=== PATIENT | male | born 1965 | race African-American/Black ===

== ENCOUNTER 2018-05-18 21:42 | Inpatient (IN) | payer OTHER ==
[~2018-05-18] VITALS: Ht 170.2 cm; Wt 107.2 kg
[2018-05-18] MEDS ORDERED: NITROGLYCERIN PREMIX 250 ML IV ONE ×2 (21:57→22:30)
[2018-05-18 23:09] LABS: BASO % 1 % (0-3); EOS # 0.1 x10^3/uL (0.0-0.7); EOS % 1 % (0-3); HEMOGLOBIN 14.9 g/dL (13.0-17.5); LYMPH # 1.3 x10^3/uL (1.0-4.8); LYMPH % 17 % (24-48); MEAN CORPUSCULAR HEMOGLOBIN 27 pg (25-35); MEAN CORPUSCULAR HGB CONC 34 g/dL (31-37); MEAN CORPUSCULAR VOLUME 79 fL (79-100); MONO # 0.3 x10^3/uL (0.0-1.1); MONO % 5 % (0-9); NEUT # 5.6 x10^3uL (1.8-7.7); NEUT % 76 % (31-73); PLATELET COUNT 184 x10^3/uL (140-400); RED BLOOD COUNT 5.55 x10^6/uL (4.30-5.70); RED CELL DISTRIBUTION WIDTH 14.9 % (11.5-14.5); WHITE BLOOD COUNT 7.4 x10^3/uL (4.0-11.0)
[2018-05-18] MEDS ORDERED: LOSA1TAB25 PO (23:16)
[2018-05-18] MEDS ORDERED: CLON0.3T PO (23:16)
[2018-05-18] MEDS ORDERED: METO-239 PO (23:16)
[2018-05-18 23:18] LABS: PROTHROMBIN TIME PATIENT 13.2 SEC (11.7-14.0)
[2018-05-18 23:25] LABS: CALCIUM 8.4 mg/dL (8.5-10.1); CREATININE 1.7 mg/dL (0.7-1.3); GFR 51.7; POTASSIUM 3.1 mmol/L (3.5-5.1)
[2018-05-18 23:30] LABS: ALBUMIN 3.2 g/dL (3.4-5.0); ALBUMIN/GLOBULIN RATIO 0.7 (1.0-1.7); TOTAL BILIRUBIN 0.5 mg/dL (0.2-1.0); TOTAL PROTEIN 7.8 g/dL (6.4-8.2)
[2018-05-18 23:36] LABS: BASE EXCESS ABG 1 mmol/L (-3-3); HCO3 ABG 26 mmol/L (21-28); PCO2 ABG 41 mmHg (35-46); PO2 ABG 86 mmHg (75-108); SAT O2 ABG 97 % (92-99)
--- NOTE | 2018-05-18 23:44 | EKG ---
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
[2018-05-18] MEDS ORDERED: ONDANSETRON PF 4 MG/2 ML VIAL. IV ONE (23:45)
[2018-05-19] VITALS (19 sets, daily range): BP systolic 152–185; BP diastolic 84–98
[2018-05-19] MEDS ORDERED: FUROSEMIDE 40 MG/4 ML VIAL. IVP ONE
[2018-05-19] MEDS ORDERED: POTASSIUM CHLORIDE 20 MEQ/15 ML ORAL LIQUID. PO ONE
[2018-05-19] MEDS ORDERED: ASPIRIN CHEWABLE 81 MG TABLET. PO ONE
[2018-05-19 02:24] LABS: AMPHETAMINE/METHAMPHETAMINE NEG (NEG); BARBITURATES NEG (NEG); BENZODIAZEPINES NEG (NEG); CANNABINOIDS NEG (NEG); COCAINE NEG (NEG); METHADONE NEG (NEG); OPIATES NEG (NEG); PHENCYCLIDINE NEG (NEG)
--- NOTE | 2018-05-19 02:38 | PHYS DOC ---
Past Medical History Past Medical History: Hypertension Past Surgical History: No Surgical History Alcohol Use: Rarely Drug Use: None Adult General Chief Complaint Chief Complaint: SHORTNESS OF BREATH HPI HPI Patient is a 53 year old male presenting with shortness of breath brought in by ambulance was hypoxic he was working in his garage he had fairly sudden onset shortness of breath. Hypoxic to the mid 80s no chest pain Review of Systems Review of Systems Limited by acuity Current Medications Current Medications Current Medications Medications (Trade) Dose Ordered Sig/Alyssa Start Time Stop Time Status Last Admin Dose Admin Aspirin (Children'S Aspirin) 324 mg 1X ONCE 05/19/18 00:00 05/19/18 00:01 DC 05/19/18 00:30 324 MG Furosemide (Lasix) 40 mg 1X ONCE 05/19/18 00:00 05/19/18 00:01 DC 05/19/18 00:30 40 MG Nitroglycerin/ Dextrose 250 ml @ 0 mls/hr 1X ONCE 05/18/18 22:30 05/18/18 22:31 DC 05/18/18 21:59 15 MLS/HR Ondansetron HCl (Zofran) 4 mg 1X ONCE 05/18/18 23:45 05/18/18 23:46 DC 05/19/18 00:30 4 MG Potassium Chloride (KCl Oral Soln) 40 meq 1X ONCE 05/19/18 00:00 05/19/18 00:01 DC 05/19/18 00:31 40 MEQ Allergies Allergies Allergies Coded Allergies Type Severity Reaction Last Updated Verified No Known Drug Allergies 05/18/18 No Physical Exam Physical Exam Constitutional: Well developed, well nourished, ill appearing HENT: Normocephalic, atraumatic, bilateral external ears normal, oropharynx moist, no oral exudates, nose normal. [] Eyes: PERRLA, EOMI, conjunctiva normal, no discharge. [] Neck: Normal range of motion, no tenderness, supple, no stridor. [] Cardiovascular: Mild tachycardia no definite murmurs Lungs & Thorax: Coarse bilateral breath sounds crackles noted tachypnea patient is on BiPAP Abdomen: Bowel sounds normal, soft, no tenderness, no masses, no pulsatile masses. [] Skin: Warm, dry, no erythema, no rash. [] Back: No tenderness, no CVA tenderness. [] Extremities: No tenderness, no cyanosis, no clubbing, ROM intact, mild 1+ edema and no asymmetry Neurologic: Alert and oriented X 3, normal motor function, normal sensory function, no focal deficits noted. [] Psychologic: Affect normal, judgement normal, mood normal. [] Current Patient Data Vital Signs Vital Signs Date Time Temp Pulse Resp B/P (MAP) Pulse Ox O2 Delivery O2 Flow Rate FiO2 05/19/18 00:20 61 190/110 (136) 96 BiPAP/CPAP 05/18/18 21:50 97.9 22 15.0 97.9 Lab Values Laboratory Tests Test 05/18/18 22:31 05/18/18 23:02 O2 Saturation 97 % (92-99) Arterial Blood pH 7.41 (7.35-7.45) Arterial Blood pCO2 at Patient Temp 41 mmHg (35-46) Arterial Blood pO2 at Patient Temp 86 mmHg (75-108) Arterial Blood HCO3 26 mmol/L (21-28) Arterial Blood Base Excess 1 mmol/L (-3-3) FiO2 70.0 White Blood Count 7.4 x10^3/uL (4.0-11.0) Red Blood Count 5.55 x10^6/uL (4.30-5.70) Hemoglobin 14.9 g/dL (13.0-17.5) Hematocrit 44.0 % (39.0-53.0) Mean Corpuscular Volume 79 fL (79-100) Mean Corpuscular Hemoglobin 27 pg (25-35) Mean Corpuscular Hemoglobin Concent 34 g/dL (31-37) Red Cell Distribution Width 14.9 % (11.5-14.5) H Platelet Count 184 x10^3/uL (140-400) Neutrophils (%) (Auto) 76 % (31-73) H Lymphocytes (%) (Auto) 17 % (24-48) L Monocytes (%) (Auto) 5 % (0-9) Eosinophils (%) (Auto) 1 % (0-3) Basophils (%) (Auto) 1 % (0-3) Neutrophils # (Auto) 5.6 x10^3uL (1.8-7.7) Lymphocytes # (Auto) 1.3 x10^3/uL (1.0-4.8) Monocytes # (Auto) 0.3 x10^3/uL (0.0-1.1) Eosinophils # (Auto) 0.1 x10^3/uL (0.0-0.7) Basophils # (Auto) 0.0 x10^3/uL (0.0-0.2) Prothrombin Time 13.2 SEC (11.7-14.0) Prothrombin Time INR 1.1 (0.8-1.1) Sodium Level 141 mmol/L (136-145) Potassium Level 3.1 mmol/L (3.5-5.1) L Chloride Level 104 mmol/L (98-107) Carbon Dioxide Level 30 mmol/L (21-32) Anion Gap 7 (6-14) Blood Urea Nitrogen 24 mg/dL (8-26) Creatinine 1.7 mg/dL (0.7-1.3) H Estimated GFR (Cockcroft-Gault) 51.7 BUN/Creatinine Ratio 14 (6-20) Glucose Level 119 mg/dL (70-99) H Calcium Level 8.4 mg/dL (8.5-10.1) L Total Bilirubin 0.5 mg/dL (0.2-1.0) Aspartate Amino Transferase (AST) 27 U/L (15-37) Alanine Aminotransferase (ALT) 36 U/L (16-63) Alkaline Phosphatase 83 U/L (46-116) Troponin I Quantitative 0.293 ng/mL (0.000-0.055) KD-Btk-N-Type Natriuretic Peptide 1902 pg/mL (0-124) H Total Protein 7.8 g/dL (6.4-8.2) Albumin 3.2 g/dL (3.4-5.0) L Albumin/Globulin Ratio 0.7 (1.0-1.7) L Ethyl Alcohol Level < 10 mg/dL (0-10) Laboratory Tests 05/18/18 23:02 Laboratory Tests 05/18/18 23:02 EKG EKG []EKG shows a normal sinus rhythm with LVH pattern probably no definite ischemia however no old EKG for comparison repeat EKG in the emergency room little bit LATER essentially unchanged no STEMI was seen Radiology/Procedures Radiology/Procedures [] Impressions: PULM EDEMA Course & Med Decision Making Course & Med Decision Making Pertinent Labs and Imaging studies reviewed. (See chart for details) 53-year-old male with hypertension presenting with acute pulmonary edema initial blood pressure in the 230s Patient was placed on BiPAP as well as a nitro drip with significant improvement in his symptoms blood pressure down to the 170s on this reevaluation. I suspect hypertensive emergency with pulmonary edema this would explain the mild elevation of troponin and BNP. Lasix was given patient was admitted to the service of Dr. GONZALEZ DURING ER VISIT. Critical care time was 35 minutes exclusive of procedures. Dragon Disclaimer Dragon Disclaimer This electronic medical record was generated, in whole or in part, using a voice recognition dictation system. Departure Departure Impression: Primary Impression: Acute pulmonary edema Disposition: ADMITTED INPATIENT Condition: GUARDED Referrals: MODE CRUZ (PCP) WALTER DAUGHERTY MD May 19, 2018 02:38
[2018-05-19] MEDS ORDERED: cloNIDine HCL 0.3 MG TABLET PO ONE (03:30)
--- NOTE | 2018-05-19 06:15 | EKG ---
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
[2018-05-19 08:04] LABS: CALCIUM 8.1 mg/dL (8.5-10.1); CREATININE 1.7 mg/dL (0.7-1.3); GFR 51.7; MAGNESIUM 1.8 mg/dL (1.8-2.4); POTASSIUM 3.6 mmol/L (3.5-5.1)
[2018-05-19 08:06] LABS: CHOLESTEROL/HDL RATIO 3.2
--- NOTE | 2018-05-19 08:51 | PDOC2 ---
CARDIAC CONSULT DATE OF CONSULT Date of Consult DATE: 05/19/18 TIME: 08:43 REASON FOR CONSULT Reason for Consult: pulmonary edema REFERRING PHYSICIAN Referring Physician: Silvana SOURCE Source: Chart review, Patient HISTORY OF PRESENT ILLNESS HISTORY OF PRESENT ILLNESS 53 year old male with a history of HTN who developed acute onset of dyspnea about 2100 yesterday. Presented to ER with O2 sats in the 80s and SBP > 200. Denies missed med dosages. Denies associated chest pain, pressure, palpitations, dizziness, nausea or lower extremity edema. Troponin peaked @ 0.29 with NT-proBNP of 1900 and Cr of 1.7. EKG without acute changes. Now with headache on NTG gtt. SBP in the 160s. Reason for Visit: pulm edema PAST MEDICAL HISTORY Cardiovascular: HTN Pulmonary: Asthma CENTRAL NERVOUS SYSTEM: Other (none) GI: No pertinent hx Heme/Onc: No pertinent hx Hepatobiliary: No pertinent hx Psych: No pertinent hx Musculoskeletal: No pain Rheumatologic: No pertinent hx Infectious disease: No pertinent hx ENT: No pertinent hx Renal/: No pertinent hx Endocrine: No pertinent hx Dermatology: No pertinent hx PAST SURGICAL HISTORY Past Surgical History: No pertinent history FAMILY HISTORY Family History: Heart Disease, Hypertension SOCIAL HISTORY Smoke: No ALCOHOL: none Drugs: None Lives: with Family CURRENT MEDICATIONS CURRENT MEDICATIONS Current Medications Medications (Trade) Dose Ordered Sig/Alyssa Route PRN Reason Start Time Stop Time Status Last Admin Dose Admin Nitroglycerin/ Dextrose 250 ml @ 0 mls/hr 1X ONCE IV 05/18/18 22:30 05/18/18 22:31 DC 05/18/18 21:59 Ondansetron HCl (Zofran) 4 mg 1X ONCE IV 05/18/18 23:45 05/18/18 23:46 DC 05/19/18 00:30 Aspirin (Children'S Aspirin) 324 mg 1X ONCE PO 05/19/18 00:00 05/19/18 00:01 DC 05/19/18 00:30 Potassium Chloride (KCl Oral Soln) 40 meq 1X ONCE PO 05/19/18 00:00 05/19/18 00:01 DC 05/19/18 00:31 Furosemide (Lasix) 40 mg 1X ONCE IVP 05/19/18 00:00 05/19/18 00:01 DC 05/19/18 00:30 Clonidine HCl (Catapres) 0.3 mg 1X ONCE PO 05/19/18 03:30 05/19/18 03:31 DC 05/19/18 03:21 ALLERGIES ALLERGIES: Coded Allergies: No Known Drug Allergies (Unverified , 05/18/18) ROS Review of System 10 point review with pertinent positives in HPI PHYSICAL EXAM General: Alert, Oriented X3, Cooperative, No acute distress HEENT: Atraumatic Lungs: Clear to auscultation, Normal air movement Heart: Normal S1, Normal S2 Abdomen: Normal bowel sounds, Soft Extremities: No edema Skin: No rashes, No breakdown Neuro: Normal speech Psych/Mental Status: Mental status NL, Mood NL MUSCULOSKELETAL: No deformity VITALS VITALS Vital Signs Date Time Temp Pulse Resp B/P (MAP) Pulse Ox O2 Delivery O2 Flow Rate FiO2 05/19/18 06:00 56 16 156/95 (115) 99 Nasal Cannula 4.0 05/19/18 02:30 98.2 98.2 LABS Lab: Laboratory Tests Test 05/18/18 22:31 05/18/18 23:02 05/19/18 02:07 05/19/18 03:00 O2 Saturation 97 % (92-99) Arterial Blood pH 7.41 (7.35-7.45) Arterial Blood pCO2 at Patient Temp 41 mmHg (35-46) Arterial Blood pO2 at Patient Temp 86 mmHg (75-108) Arterial Blood HCO3 26 mmol/L (21-28) Arterial Blood Base Excess 1 mmol/L (-3-3) FiO2 70.0 White Blood Count 7.4 x10^3/uL (4.0-11.0) Red Blood Count 5.55 x10^6/uL (4.30-5.70) Hemoglobin 14.9 g/dL (13.0-17.5) Hematocrit 44.0 % (39.0-53.0) Mean Corpuscular Volume 79 fL (79-100) Mean Corpuscular Hemoglobin 27 pg (25-35) Mean Corpuscular Hemoglobin Concent 34 g/dL (31-37) Red Cell Distribution Width 14.9 % (11.5-14.5) Platelet Count 184 x10^3/uL (140-400) Neutrophils (%) (Auto) 76 % (31-73) Lymphocytes (%) (Auto) 17 % (24-48) Monocytes (%) (Auto) 5 % (0-9) Eosinophils (%) (Auto) 1 % (0-3) Basophils (%) (Auto) 1 % (0-3) Neutrophils # (Auto) 5.6 x10^3uL (1.8-7.7) Lymphocytes # (Auto) 1.3 x10^3/uL (1.0-4.8) Monocytes # (Auto) 0.3 x10^3/uL (0.0-1.1) Eosinophils # (Auto) 0.1 x10^3/uL (0.0-0.7) Basophils # (Auto) 0.0 x10^3/uL (0.0-0.2) Prothrombin Time 13.2 SEC (11.7-14.0) Prothromb Time International Ratio 1.1 (0.8-1.1) Sodium Level 141 mmol/L (136-145) Potassium Level 3.1 mmol/L (3.5-5.1) Chloride Level 104 mmol/L (98-107) Carbon Dioxide Level 30 mmol/L (21-32) Anion Gap 7 (6-14) Blood Urea Nitrogen 24 mg/dL (8-26) Creatinine 1.7 mg/dL (0.7-1.3) Estimated GFR (Cockcroft-Gault) 51.7 BUN/Creatinine Ratio 14 (6-20) Glucose Level 119 mg/dL (70-99) Calcium Level 8.4 mg/dL (8.5-10.1) Total Bilirubin 0.5 mg/dL (0.2-1.0) Aspartate Amino Transf (AST/SGOT) 27 U/L (15-37) Alanine Aminotransferase (ALT/SGPT) 36 U/L (16-63) Alkaline Phosphatase 83 U/L (46-116) Troponin I Quantitative 0.293 ng/mL (0.000-0.055) 0.268 ng/mL (0.000-0.055) QG-Fve-I-Type Natriuretic Peptide 1902 pg/mL (0-124) Total Protein 7.8 g/dL (6.4-8.2) Albumin 3.2 g/dL (3.4-5.0) Albumin/Globulin Ratio 0.7 (1.0-1.7) Ethyl Alcohol Level < 10 mg/dL (0-10) Urine Opiates Screen Neg (NEG) Urine Methadone Screen Neg (NEG) Urine Barbiturates Neg (NEG) Urine Phencyclidine Screen Neg (NEG) Urine Amphetamine/Methamphetamine Neg (NEG) Urine Benzodiazepines Screen Neg (NEG) Urine Cocaine Screen Neg (NEG) Urine Cannabinoids Screen Neg (NEG) Urine Ethyl Alcohol Neg (NEG) Thyroid Stimulating Hormone (TSH) 1.151 uIU/mL (0.358-3.74) Test 05/19/18 06:00 Sodium Level 141 mmol/L (136-145) Potassium Level 3.6 mmol/L (3.5-5.1) Chloride Level 105 mmol/L (98-107) Carbon Dioxide Level 29 mmol/L (21-32) Anion Gap 7 (6-14) Blood Urea Nitrogen 25 mg/dL (8-26) Creatinine 1.7 mg/dL (0.7-1.3) Estimated GFR (Cockcroft-Gault) 51.7 Glucose Level 131 mg/dL (70-99) Calcium Level 8.1 mg/dL (8.5-10.1) Magnesium Level 1.8 mg/dL (1.8-2.4) Troponin I Quantitative 0.241 ng/mL (0.000-0.055) Triglycerides Level 25 mg/dL (0-150) Cholesterol Level 146 mg/dL (0-200) LDL Cholesterol, Calculated 95 mg/dL (0-100) VLDL Cholesterol, Calculated 5 mg/dL (0-40) Non-HDL Cholesterol Calculated 100 mg/dL (0-129) HDL Cholesterol 46 mg/dL (40-60) Cholesterol/HDL Ratio 3.2 IMAGES IMAGES CXR - no report and film can not be opened EKG EKG no acute changes ECHOCARDIOGRAM ECHOCARDIOGRAM pending ASSESSMENT/PLAN ASSESSMENT/PLAN 1. pulmonary edema secondary to hypertensive urgency --treated with furosemide in ER with symptom improvement --resume home meds which include diuretic --d/c NTG gtt and treat headache with Tylenol 2. NSTEMI secondary to hypertensive urgency --trop peaked @ 0.29; likely demand mediated --echo to evaluate LVEF and assess for WMA --consider MPI as outpatient with risk factors of HTN & family history 3. lipids controlled agreeable with transfer to [facility] ONEIDA COOL APRN May 19, 2018 08:51
--- NOTE | 2018-05-19 08:54 | RAD ---
Chest radiograph 05/18/2018 10:07 PM INDICATION: Dyspnea COMPARISON: None available TECHNIQUE: Portable upright frontal view of the chest is provided. FINDINGS: The cardiomediastinal silhouette is within normal limits. There is moderate pulmonary vascular congestion. There is confluent alveolar airspace disease in right lower lobe. This may represent asymmetric alveolar edema versus pulmonary infiltrate. No pneumothorax. If no pleural effusions. No significant osseous abnormality is identified. IMPRESSION: Moderate pulmonary vascular congestion with more confluent opacity in the right lower lobe suggestive of asymmetric pulmonary edema versus pulmonary infiltrate. Electronically signed by: Kathleen Caputo MD (05/19/2018 8:51 AM) [id number]
[2018-05-19] MEDS ORDERED: NON FORMULARY ITEM (Losartan/Hydrochlorothiazide (Losartan-Hctz 100-12.5 Mg Tab) 1 EACH) PO SCH (09:00)
[2018-05-19] MEDS: hydroCHLOROthiazide 12.5 MG CAPSULE PO SCH (09:26)
[2018-05-19] MEDS: ACETAMINOPHEN 500 MG TABLET PO PRN (09:26)
[2018-05-19] MEDS: LOSARTAN POTASSIUM 50 MG TABLET. PO SCH (09:27)
[2018-05-19] MEDS: cloNIDine HCL 0.3 MG TABLET PO SCH ×3 (09:29→19:43)
[2018-05-19] MEDS ORDERED: METOPROLOL SUCC 24HR ER 25 MG TAB.ER.24H. PO SCH (09:30)
--- NOTE | 2018-05-19 10:18 | PDOC ---
Provider Note Provider Note Pt seen in ICU. H&P dictated. #[id number]. NEETU GONZALEZ MD May 19, 2018 10:18
--- NOTE | 2018-05-19 10:29 | CARD ---
MR#: [id number] Date of Study: 05/19/2018 Ordering Physician: MARIA VICTORIA ZAPATA, Referring Physician: NEETU GONZALEZ Tech: Magaly Matamoros SARAH APPROVED REPORT EXAM: Two-dimensional and M-mode echocardiogram with Doppler and color Doppler. Other Information Quality : Good INDICATION Congestive Heart Failure 2D DIMENSIONS RVDd2.8 (2.9-3.5cm)Left Atrium(2D)4.6 (1.6-4.0cm) IVSd1.7 (0.7-1.1cm)Aortic Root(2D)2.9 (2.0-3.7cm) LVDd4.7 (3.9-5.9cm)LVOT Diameter2.4 (1.8-2.4cm) PWd1.3 (0.7-1.1cm)LVDs3.3 (2.5-4.0cm) FS (%) 31.3 %SV61.6 ml LVEF(%)59.1 (>50%) Aortic Valve AoV Peak Van.143.0cm/sAoV VTI28.2cm AO Peak GR.8.2mmHgLVOT VTI 25.02cm AO Mean GR.5mmHgAVA (VTI)3.86cm2 Mitral Valve MV E Pegjvnee62.0cm/sMV DECEL XOAE243tz MV A Jxfettru72.8cm/sE/A Ratio1.1 TDI Lateral E' P. V5.73cm/sMedial E' P. V5.86cm/s E/Lateral E'15.4E/Medial E'15.0 Tricuspid Valve TR P. Iminzomb722mf/sRAP AYOOLZKZ2lqEf TR Peak Gr.69jgTfREQY48xiDl Pulmonary Vein S1 Mefaytgo43.5cm/sS2 Zxxrjluj75.52cm/s D2 Tfipfxdn99.5cm/s LEFT VENTRICLE The left ventricle is normal size. There is mild to moderate concentric left ventricular hypertrophy. The left ventricular systolic function is normal. The Ejection Fraction is 60-65%. There is normal L V segmental wall motion. The left ventricular diastolic function and filling is normal for age. RIGHT VENTRICLE The right ventricle is normal size. The right ventricular systolic function is normal. ATRIA The left atrium is mildly dilated. The right atrium size is normal. The interatrial septum is intact with no evidence for an atrial septal defect or patent foramen ovale as noted on 2-D or Doppler imagi ng. AORTIC VALVE The aortic valve is calcified but opens well. Doppler and Color Flow revealed no significant aortic r egurgitation. There is no significant aortic valvular stenosis. MITRAL VALVE The mitral valve is calcified but opens well. There is no evidence of mitral valve prolapse. There is no mitral valve stenosis. Doppler and Color-flow revealed trace mitral regurgitation. TRICUSPID VALVE The tricuspid valve is normal in structure and function. Doppler and Color Flow revealed trace tricus pid regurgitation. The PA pressure was estimated at 24 mmHg. There is no tricuspid valve stenosis. PULMONIC VALVE The pulmonary valve is normal in structure and function. Doppler and Color Flow revealed trace pulmon ic valvular regurgitation. There is no pulmonic valvular stenosis. GREAT VESSELS The aortic root is normal in size. The ascending aorta is normal in size. The IVC is normal in size a nd collapses >50% with inspiration. PERICARDIAL EFFUSION There is no evidence of significant pericardial effusion. Critical Notification Critical Value: No <Conclusion> The left ventricular systolic function is normal. The Ejection Fraction is 60-65%. There is normal LV segmental wall motion. Trace mitral regurgitation. Trace tricuspid regurgitation. The PA pressure was estimated at 24 mmHg. There is no evidence of significant pericardial effusion. Signed by : Leobardo Palacios, Electronically Approved : 05/19/2018 10:28:52
[2018-05-19] MEDS ORDERED: ASPIRIN 325 MG TABLET PO ONE (10:30)
[2018-05-19] MEDS ORDERED: IPRATRPIUM/ALBUTEROL 0.5/2.5MG 3 ML NEBU. NEB ONE (10:30)
--- NOTE | 2018-05-19 10:51 | EKG ---
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
[2018-05-19] MEDS: IPRATRPIUM/ALBUTEROL 0.5/2.5MG 3 ML NEBU. NEB SCH ×3 (11:06→19:12)
--- NOTE | 2018-05-19 12:01 | RAD ---
AP and Lateral Views of the Chest 05/19/2018 10:40 AM Indication: F/U CHF Comparison: Chest radiograph, yesterday Findings: Central vascular congestion and interstitial edema have improved. Right-sided infiltrate persists, but also appears somewhat improved. No significant pleural effusion is identified. The heart is mildly enlarged. No acute osseous changes are seen. IMPRESSION: 1. Improving vascular congestion and interstitial edema 2. Improvement persistent right basilar infiltrate Electronically signed by: Minor Austin MD (05/19/2018 11:57 AM) [id number]
--- NOTE | 2018-05-19 12:50 | PDOC ---
PULMONARY PROGRESS NOTES Vitals Vital Signs Date Time Temp Pulse Resp B/P (MAP) Pulse Ox O2 Delivery O2 Flow Rate FiO2 05/19/18 11:05 95 Room Air 05/19/18 09:29 64 170/95 05/19/18 08:00 2.0 05/19/18 06:00 16 05/19/18 02:30 98.2 98.2 Labs Laboratory Tests Test 05/18/18 22:31 05/18/18 23:02 05/19/18 02:07 05/19/18 03:00 O2 Saturation 97 % (92-99) Arterial Blood pH 7.41 (7.35-7.45) Arterial Blood pCO2 at Patient Temp 41 mmHg (35-46) Arterial Blood pO2 at Patient Temp 86 mmHg (75-108) Arterial Blood HCO3 26 mmol/L (21-28) Arterial Blood Base Excess 1 mmol/L (-3-3) FiO2 70.0 White Blood Count 7.4 x10^3/uL (4.0-11.0) Red Blood Count 5.55 x10^6/uL (4.30-5.70) Hemoglobin 14.9 g/dL (13.0-17.5) Hematocrit 44.0 % (39.0-53.0) Mean Corpuscular Volume 79 fL (79-100) Mean Corpuscular Hemoglobin 27 pg (25-35) Mean Corpuscular Hemoglobin Concent 34 g/dL (31-37) Red Cell Distribution Width 14.9 % (11.5-14.5) Platelet Count 184 x10^3/uL (140-400) Neutrophils (%) (Auto) 76 % (31-73) Lymphocytes (%) (Auto) 17 % (24-48) Monocytes (%) (Auto) 5 % (0-9) Eosinophils (%) (Auto) 1 % (0-3) Basophils (%) (Auto) 1 % (0-3) Neutrophils # (Auto) 5.6 x10^3uL (1.8-7.7) Lymphocytes # (Auto) 1.3 x10^3/uL (1.0-4.8) Monocytes # (Auto) 0.3 x10^3/uL (0.0-1.1) Eosinophils # (Auto) 0.1 x10^3/uL (0.0-0.7) Basophils # (Auto) 0.0 x10^3/uL (0.0-0.2) Prothrombin Time 13.2 SEC (11.7-14.0) Prothromb Time International Ratio 1.1 (0.8-1.1) Sodium Level 141 mmol/L (136-145) Potassium Level 3.1 mmol/L (3.5-5.1) Chloride Level 104 mmol/L (98-107) Carbon Dioxide Level 30 mmol/L (21-32) Anion Gap 7 (6-14) Blood Urea Nitrogen 24 mg/dL (8-26) Creatinine 1.7 mg/dL (0.7-1.3) Estimated GFR (Cockcroft-Gault) 51.7 BUN/Creatinine Ratio 14 (6-20) Glucose Level 119 mg/dL (70-99) Calcium Level 8.4 mg/dL (8.5-10.1) Total Bilirubin 0.5 mg/dL (0.2-1.0) Aspartate Amino Transf (AST/SGOT) 27 U/L (15-37) Alanine Aminotransferase (ALT/SGPT) 36 U/L (16-63) Alkaline Phosphatase 83 U/L (46-116) Troponin I Quantitative 0.293 ng/mL (0.000-0.055) 0.268 ng/mL (0.000-0.055) WV-Blc-G-Type Natriuretic Peptide 1902 pg/mL (0-124) Total Protein 7.8 g/dL (6.4-8.2) Albumin 3.2 g/dL (3.4-5.0) Albumin/Globulin Ratio 0.7 (1.0-1.7) Ethyl Alcohol Level < 10 mg/dL (0-10) Urine Opiates Screen Neg (NEG) Urine Methadone Screen Neg (NEG) Urine Barbiturates Neg (NEG) Urine Phencyclidine Screen Neg (NEG) Urine Amphetamine/Methamphetamine Neg (NEG) Urine Benzodiazepines Screen Neg (NEG) Urine Cocaine Screen Neg (NEG) Urine Cannabinoids Screen Neg (NEG) Urine Ethyl Alcohol Neg (NEG) Thyroid Stimulating Hormone (TSH) 1.151 uIU/mL (0.358-3.74) Test 05/19/18 06:00 Sodium Level 141 mmol/L (136-145) Potassium Level 3.6 mmol/L (3.5-5.1) Chloride Level 105 mmol/L (98-107) Carbon Dioxide Level 29 mmol/L (21-32) Anion Gap 7 (6-14) Blood Urea Nitrogen 25 mg/dL (8-26) Creatinine 1.7 mg/dL (0.7-1.3) Estimated GFR (Cockcroft-Gault) 51.7 Glucose Level 131 mg/dL (70-99) Calcium Level 8.1 mg/dL (8.5-10.1) Magnesium Level 1.8 mg/dL (1.8-2.4) Troponin I Quantitative 0.241 ng/mL (0.000-0.055) Triglycerides Level 25 mg/dL (0-150) Cholesterol Level 146 mg/dL (0-200) LDL Cholesterol, Calculated 95 mg/dL (0-100) VLDL Cholesterol, Calculated 5 mg/dL (0-40) Non-HDL Cholesterol Calculated 100 mg/dL (0-129) HDL Cholesterol 46 mg/dL (40-60) Cholesterol/HDL Ratio 3.2 Laboratory Tests Test 05/18/18 22:31 05/18/18 23:02 05/19/18 02:07 05/19/18 03:00 O2 Saturation 97 % (92-99) Arterial Blood pH 7.41 (7.35-7.45) Arterial Blood pCO2 at Patient Temp 41 mmHg (35-46) Arterial Blood pO2 at Patient Temp 86 mmHg (75-108) Arterial Blood HCO3 26 mmol/L (21-28) Arterial Blood Base Excess 1 mmol/L (-3-3) FiO2 70.0 White Blood Count 7.4 x10^3/uL (4.0-11.0) Red Blood Count 5.55 x10^6/uL (4.30-5.70) Hemoglobin 14.9 g/dL (13.0-17.5) Hematocrit 44.0 % (39.0-53.0) Mean Corpuscular Volume 79 fL (79-100) Mean Corpuscular Hemoglobin 27 pg (25-35) Mean Corpuscular Hemoglobin Concent 34 g/dL (31-37) Red Cell Distribution Width 14.9 % (11.5-14.5) Platelet Count 184 x10^3/uL (140-400) Neutrophils (%) (Auto) 76 % (31-73) Lymphocytes (%) (Auto) 17 % (24-48) Monocytes (%) (Auto) 5 % (0-9) Eosinophils (%) (Auto) 1 % (0-3) Basophils (%) (Auto) 1 % (0-3) Neutrophils # (Auto) 5.6 x10^3uL (1.8-7.7) Lymphocytes # (Auto) 1.3 x10^3/uL (1.0-4.8) Monocytes # (Auto) 0.3 x10^3/uL (0.0-1.1) Eosinophils # (Auto) 0.1 x10^3/uL (0.0-0.7) Basophils # (Auto) 0.0 x10^3/uL (0.0-0.2) Prothrombin Time 13.2 SEC (11.7-14.0) Prothromb Time International Ratio 1.1 (0.8-1.1) Sodium Level 141 mmol/L (136-145) Potassium Level 3.1 mmol/L (3.5-5.1) Chloride Level 104 mmol/L (98-107) Carbon Dioxide Level 30 mmol/L (21-32) Anion Gap 7 (6-14) Blood Urea Nitrogen 24 mg/dL (8-26) Creatinine 1.7 mg/dL (0.7-1.3) Estimated GFR (Cockcroft-Gault) 51.7 BUN/Creatinine Ratio 14 (6-20) Glucose Level 119 mg/dL (70-99) Calcium Level 8.4 mg/dL (8.5-10.1) Total Bilirubin 0.5 mg/dL (0.2-1.0) Aspartate Amino Transf (AST/SGOT) 27 U/L (15-37) Alanine Aminotransferase (ALT/SGPT) 36 U/L (16-63) Alkaline Phosphatase 83 U/L (46-116) Troponin I Quantitative 0.293 ng/mL (0.000-0.055) 0.268 ng/mL (0.000-0.055) JL-Ego-W-Type Natriuretic Peptide 1902 pg/mL (0-124) Total Protein 7.8 g/dL (6.4-8.2) Albumin 3.2 g/dL (3.4-5.0) Albumin/Globulin Ratio 0.7 (1.0-1.7) Ethyl Alcohol Level < 10 mg/dL (0-10) Urine Opiates Screen Neg (NEG) Urine Methadone Screen Neg (NEG) Urine Barbiturates Neg (NEG) Urine Phencyclidine Screen Neg (NEG) Urine Amphetamine/Methamphetamine Neg (NEG) Urine Benzodiazepines Screen Neg (NEG) Urine Cocaine Screen Neg (NEG) Urine Cannabinoids Screen Neg (NEG) Urine Ethyl Alcohol Neg (NEG) Thyroid Stimulating Hormone (TSH) 1.151 uIU/mL (0.358-3.74) Test 05/19/18 06:00 Sodium Level 141 mmol/L (136-145) Potassium Level 3.6 mmol/L (3.5-5.1) Chloride Level 105 mmol/L (98-107) Carbon Dioxide Level 29 mmol/L (21-32) Anion Gap 7 (6-14) Blood Urea Nitrogen 25 mg/dL (8-26) Creatinine 1.7 mg/dL (0.7-1.3) Estimated GFR (Cockcroft-Gault) 51.7 Glucose Level 131 mg/dL (70-99) Calcium Level 8.1 mg/dL (8.5-10.1) Magnesium Level 1.8 mg/dL (1.8-2.4) Troponin I Quantitative 0.241 ng/mL (0.000-0.055) Triglycerides Level 25 mg/dL (0-150) Cholesterol Level 146 mg/dL (0-200) LDL Cholesterol, Calculated 95 mg/dL (0-100) VLDL Cholesterol, Calculated 5 mg/dL (0-40) Non-HDL Cholesterol Calculated 100 mg/dL (0-129) HDL Cholesterol 46 mg/dL (40-60) Cholesterol/HDL Ratio 3.2 Medications Active Scripts Medications Dose Route/Sig Max Daily Dose Days Date Category Clonidine Hcl 0.3 Mg Tablet 0.3 Mg PO TID 05/18/18 Reported Losartan-Hctz 100-12.5 Mg Tab (Losartan/Hydrochlorothiazide) 1 Each Tablet 1 Each PO DAILY 05/18/18 Reported Metoprolol Succinate ( Xl ) (Metoprolol Succinate) 25 Mg Tab.er.24h 25 Mg PO DAILY 05/18/18 Reported Impression . ACUTE RESP FAILURE SEC TO CHF POSSIBLE PNEUMONIA AGREE WITH CURRENT RX ADD RAGINI ROMAN MD May 19, 2018 12:50
[2018-05-19] MEDS: DOXYCYCLINE HYCLATE 100 MG TABLET PO SCH ×2 (13:34→19:43)
--- NOTE | 2018-05-19 15:15 | RAD ---
Renal ultrasound, 05/19/2018: HISTORY: Renal failure The right kidney measures 10.3 cm in length while the left kidney measures 10.9 cm. There is no evidence of hydronephrosis or a renal mass. The renal parenchymal echogenicity is within normal limits. Limited views of urinary bladder show no abnormality. Bilateral ureteral jets are present. Graft impression: No significant abnormality is detected. IMPRESSION: No significant renal abnormality is detected. Deep Doppler renal ultrasound, 05/19/2018: HISTORY: Renal failure Duplex evaluation of the main renal arteries was performed including grayscale, color-flow and spectral Doppler analysis. The peak systolic velocity in the right main renal artery is 79 cm/s and on the left is 45 cm/s. No high velocity or velocity acceleration is seen in either main renal artery to suggest significant renal artery stenosis. No parvus/tardus phenomena is evident. IMPRESSION: No duplex evidence of significant renal artery stenosis. Electronically signed by: Alli Frazier MD (05/19/2018 3:12 PM) [facility]
[2018-05-19] MEDS: LABETALOL 20 MG/4 ML DISP.SYRIN. IVP PRN (17:37)
--- NOTE | 2018-05-19 18:07 | HP ---
ADMIT DATE: 05/19/2018 LOCATION: 208. REASON FOR ADMISSION TO THE HOSPITAL: Shortness of breath, pulmonary edema. HISTORY OF PRESENT ILLNESS: The patient is a 53-year-old male. The patient says he has history of hypertension and takes medications, sees Dr. Cruz as primary physician. He was cleaning his car yesterday in the garage, and he says he was using that spray to clean the tires and after that he felt hard to breathe. He was having wheezing problems, and then, he called 911 and came to the hospital. His blood pressure was high, and his troponin was peaked to 0.2, creatinine 1.7, was admitted. X-ray shows fluid in the lungs, pulmonary edema, was given Lasix, was given nitroglycerin drip. Cardiology was consulted, was admitted to the hospital. PAST MEDICAL HISTORY: History of hypertension and asthma. Denies any cardiac problems. PAST SURGICAL HISTORY: No surgical history. FAMILY HISTORY: Positive for hypertension, heart disease. SOCIAL HISTORY: No history of smoking, alcohol, drug abuse. ALLERGIES: No known drug allergies. MEDICATIONS AT HOME: The patient is on clonidine 0.3 three times daily, losartan with hydrochlorothiazide 100/12.5 daily, metoprolol 25 mg daily. REVIEW OF SYSTEMS: CARDIAC: No chest pain. GASTROINTESTINAL: No nausea, vomiting. Short of breath with wheezing. No fever. Rest of the 14-system was reviewed and negative. PHYSICAL EXAMINATION: VITAL SIGNS: At the time of admission show temperature 97, pulse 77, respirations 22, blood pressure 177/124. He was on BiPAP at 90%, 15 liters flow. HEENT: Head is atraumatic. Pupils are equal. Oral cavity: No congestion. NECK: Supple. Thyroid not enlarged. JVD not elevated. CHEST: Symmetrical. CARDIOVASCULAR: S1, S2. LUNGS: Crackles at the base with some wheezing. ABDOMEN: Soft, bowel sounds present, no mass palpable. EXTERNAL GENITALIA: No Lewis. RECTAL: Deferred. EXTREMITIES: No calf tenderness, no edema. Pulses 1+. NEUROLOGIC: Cancer nerves intact. Power 5/5 both extremities. LABORATORY DATA: Shows a white count of 7, hemoglobin of 15, platelets 184. INR is 1.1. Electrolytes show sodium 141, potassium 3.1, chloride 104, bicarb 30, BUN 24, creatinine 1.7, glucose 119. BNP 1902. Troponin was 0.2, went up to 0.26, maximum was 0.29. Cholesterol 146, LDL 95. TSH 1.1. Chest x-ray shows vascular congestion, right lower lobe infiltrate. FINAL IMPRESSION: 1. Acute congestive heart failure/pulmonary edema. 2. Hypertensive emergency. 3. Chronic renal insufficiency.stage 3 4. Questionable history of asthma. PLAN: At this time, was admit to hospital, serial cardiac enzymes, EKG. Cardiology is consulted. Aspirin was given and nitroglycerin drip. Echocardiogram and a stress test. The patient also had a creatinine of 1.7. Get ultrasound kidneys and renal Doppler and also because of infiltrates in the lung, we will have pulmonary consult and see how the patient's condition improves with IV Lasix in the next couple of days. The patient was seen in the ICU. NEETU GONZALEZ MD DR: PACHECO/dc JOB#: [id number] / [id number] indu CRUZ DR MTDD
[2018-05-19] MEDS: LACTOBACILLUS RHAMNOSUS GG 1 CAPSULE. PO SCH (19:43)
[2018-05-19] MEDS: ATORVASTATIN CALCIUM 10 MG TABLET. PO SCH (19:44)
[2018-05-20] VITALS (7 sets, daily range): BP systolic 163–201; BP diastolic 94–118
--- NOTE | 2018-05-20 02:26 | CONS ---
DATE OF CONSULTATION: 05/19/2018 ATTENDING PHYSICIAN: Dr. Fuentes. REASON FOR CONSULTATION: The patient is seen in pulmonary consultation at the request of Dr. Fuentes for acute respiratory failure. HISTORY OF PRESENT ILLNESS: The patient is a 53-year-old -[place] male with a history of hypertension, developed acute onset of dyspnea last evening approximately 2100; however, he was found to have O2 sats in the Emergency Department of around 80, systolic blood pressure was over 200. The patient denied not taking his blood pressure medication. He denied any chest pain or pressure. He was wheezing. He states this past week, he felt like he had a cold. He was also utilizing a disabilities caregiver in his garage with the door closed and he started developing shortness of breath and wheezing. There is no prior history of asthma. There is no family history of asthma. The patient has never smoked. His x-ray revealed vascular congestion with possible right lower lobe infiltrate. His x-ray has actually improved today in comparison to yesterday's x-ray, but he does have a persistent right lower lobe infiltrate. No fever, chills, nausea, vomiting, or diarrhea. PAST MEDICAL HISTORY: Remarkable for hypertension. PAST SURGICAL HISTORY: None. FAMILY HISTORY: Hypertension and coronary artery disease. SOCIAL HISTORY: He is a lifetime nonsmoker. 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 ALLERGIES: No known drug allergies. REVIEW OF SYSTEMS: CONSTITUTIONAL: No fever or chills. EYES: No changes in visual acuity. HEENT: No nasal congestion or sore throat. PULMONARY: As indicated above. CARDIOVASCULAR: As indicated above. GASTROINTESTINAL: No nausea, vomiting, or diarrhea. GENITOURINARY: No dysuria or frequency. MUSCULOSKELETAL: No localized muscle aches or joint pain. SKIN: No new skin rashes. NEUROLOGIC: No headaches, diplopia or blurred vision. MEDICATIONS: List was reviewed. PHYSICAL EXAMINATION: GENERAL: The patient was in the Intensive Care Unit, currently on 2 liters of oxygen supplementation. At one point, he was requiring 15 liters. VITAL SIGNS: His blood pressure is down to 170/95. HEENT: Eyes: The sclerae were nonicteric. NECK: Jugular venous distention was not elevated. No lymphadenopathy. CHEST: Slight crackles in the bases. No wheezes. CARDIOVASCULAR: Regular rate and rhythm with S1, S2, no S3. ABDOMEN: Soft, nontender, nondistended. EXTREMITIES: No clubbing, cyanosis or edema. NEUROLOGIC: The patient was awake, alert, following commands. A detailed neuro exam was not performed. LABORATORY DATA: Reviewed. Toxicology screen was negative, ethyl alcohol level was negative. INR was 1.1. Electrolytes were noted. BUN and creatinine were elevated. Troponin was elevated. BNP was elevated. White count was normal. Hemoglobin and hematocrit were normal. Arterial blood gas on 70% FiO2, pH is 7.41, PaCO2 of 41, PaO2 of 86, bicarbonate 26. Chest x-ray as indicated above. IMPRESSION: 1. Acute respiratory failure secondary to acute diastolic heart failure. 2. Abnormal x-ray compatible with vascular congestion. 3. Possible pneumonia. 4. Echocardiogram revealing ejection fraction of 60-65%, PA pressure of 24. 5. Suspect secondary pulmonary hypertension related to heart failure. 6. Non-ST segment elevation secondary to hypertensive urgency. 7. Hypertensive urgency. PLAN: 1. Continue diuresis per Cardiology. 2. Possible MPI as an outpatient. 3. We will add doxycycline. I do appreciate the privilege in sharing in the patient's care. RAGINI FITZGERALD MD DR: MARIELLA/dc JOB#: [id number] / [id number]
[2018-05-20] MEDS: ACETAMINOPHEN 500 MG TABLET PO PRN ×3 (04:37→20:29)
[2018-05-20] MEDS: LABETALOL 20 MG/4 ML DISP.SYRIN. IVP PRN ×2 (04:38→13:16)
[2018-05-20 05:54] LABS: CALCIUM 8.3 mg/dL (8.5-10.1); CREATININE 1.6 mg/dL (0.7-1.3); GFR 55.4
[2018-05-20] MEDS: cloNIDine HCL 0.3 MG TABLET PO SCH ×3 (06:15→20:30)
--- NOTE | 2018-05-20 07:09 | PDOC ---
PULMONARY PROGRESS NOTES Subjective sob better, has cough, no cp, bp is difficult to control Vitals Vital Signs Date Time Temp Pulse Resp B/P (MAP) Pulse Ox O2 Delivery O2 Flow Rate FiO2 05/20/18 06:21 187/94 (125) 05/20/18 03:30 98.6 67 22 98 Room Air 98.6 05/19/18 08:00 2.0 ROS: No Nausea, No Chest Pain General: Alert, Oriented X4 HEENT: Other (nc at perrl shallow oropharynx. nose clear ) Lungs: Clear Cardiovascular: S2 Abdomen: Soft, Non-tender Neuro Exam: Alert Extremities: No Edema Skin: Warm Labs Laboratory Tests Test 05/18/18 22:31 05/18/18 23:02 05/19/18 02:07 05/19/18 02:40 O2 Saturation 97 % (92-99) Arterial Blood pH 7.41 (7.35-7.45) Arterial Blood pCO2 at Patient Temp 41 mmHg (35-46) Arterial Blood pO2 at Patient Temp 86 mmHg (75-108) Arterial Blood HCO3 26 mmol/L (21-28) Arterial Blood Base Excess 1 mmol/L (-3-3) FiO2 70.0 White Blood Count 7.4 x10^3/uL (4.0-11.0) Red Blood Count 5.55 x10^6/uL (4.30-5.70) Hemoglobin 14.9 g/dL (13.0-17.5) Hematocrit 44.0 % (39.0-53.0) Mean Corpuscular Volume 79 fL (79-100) Mean Corpuscular Hemoglobin 27 pg (25-35) Mean Corpuscular Hemoglobin Concent 34 g/dL (31-37) Red Cell Distribution Width 14.9 % (11.5-14.5) Platelet Count 184 x10^3/uL (140-400) Neutrophils (%) (Auto) 76 % (31-73) Lymphocytes (%) (Auto) 17 % (24-48) Monocytes (%) (Auto) 5 % (0-9) Eosinophils (%) (Auto) 1 % (0-3) Basophils (%) (Auto) 1 % (0-3) Neutrophils # (Auto) 5.6 x10^3uL (1.8-7.7) Lymphocytes # (Auto) 1.3 x10^3/uL (1.0-4.8) Monocytes # (Auto) 0.3 x10^3/uL (0.0-1.1) Eosinophils # (Auto) 0.1 x10^3/uL (0.0-0.7) Basophils # (Auto) 0.0 x10^3/uL (0.0-0.2) Prothrombin Time 13.2 SEC (11.7-14.0) Prothromb Time International Ratio 1.1 (0.8-1.1) Sodium Level 141 mmol/L (136-145) Potassium Level 3.1 mmol/L (3.5-5.1) Chloride Level 104 mmol/L (98-107) Carbon Dioxide Level 30 mmol/L (21-32) Anion Gap 7 (6-14) Blood Urea Nitrogen 24 mg/dL (8-26) Creatinine 1.7 mg/dL (0.7-1.3) Estimated GFR (Cockcroft-Gault) 51.7 BUN/Creatinine Ratio 14 (6-20) Glucose Level 119 mg/dL (70-99) Calcium Level 8.4 mg/dL (8.5-10.1) Total Bilirubin 0.5 mg/dL (0.2-1.0) Aspartate Amino Transf (AST/SGOT) 27 U/L (15-37) Alanine Aminotransferase (ALT/SGPT) 36 U/L (16-63) Alkaline Phosphatase 83 U/L (46-116) Troponin I Quantitative 0.293 ng/mL (0.000-0.055) IF-Nnc-U-Type Natriuretic Peptide 1902 pg/mL (0-124) Total Protein 7.8 g/dL (6.4-8.2) Albumin 3.2 g/dL (3.4-5.0) Albumin/Globulin Ratio 0.7 (1.0-1.7) Ethyl Alcohol Level < 10 mg/dL (0-10) Urine Opiates Screen Neg (NEG) Urine Methadone Screen Neg (NEG) Urine Barbiturates Neg (NEG) Urine Phencyclidine Screen Neg (NEG) Urine Amphetamine/Methamphetamine Neg (NEG) Urine Benzodiazepines Screen Neg (NEG) Urine Cocaine Screen Neg (NEG) Urine Cannabinoids Screen Neg (NEG) Urine Ethyl Alcohol Neg (NEG) Nasal Screen MRSA (PCR) Negative (Negative) Test 05/19/18 03:00 05/19/18 06:00 05/20/18 05:00 Troponin I Quantitative 0.268 ng/mL (0.000-0.055) 0.241 ng/mL (0.000-0.055) Thyroid Stimulating Hormone (TSH) 1.151 uIU/mL (0.358-3.74) Sodium Level 141 mmol/L (136-145) 141 mmol/L (136-145) Potassium Level 3.6 mmol/L (3.5-5.1) 3.0 mmol/L (3.5-5.1) Chloride Level 105 mmol/L (98-107) 104 mmol/L (98-107) Carbon Dioxide Level 29 mmol/L (21-32) 28 mmol/L (21-32) Anion Gap 7 (6-14) 9 (6-14) Blood Urea Nitrogen 25 mg/dL (8-26) 25 mg/dL (8-26) Creatinine 1.7 mg/dL (0.7-1.3) 1.6 mg/dL (0.7-1.3) Estimated GFR (Cockcroft-Gault) 51.7 55.4 Glucose Level 131 mg/dL (70-99) 99 mg/dL (70-99) Calcium Level 8.1 mg/dL (8.5-10.1) 8.3 mg/dL (8.5-10.1) Magnesium Level 1.8 mg/dL (1.8-2.4) Triglycerides Level 25 mg/dL (0-150) Cholesterol Level 146 mg/dL (0-200) LDL Cholesterol, Calculated 95 mg/dL (0-100) VLDL Cholesterol, Calculated 5 mg/dL (0-40) Non-HDL Cholesterol Calculated 100 mg/dL (0-129) HDL Cholesterol 46 mg/dL (40-60) Cholesterol/HDL Ratio 3.2 Laboratory Tests Test 05/20/18 05:00 Sodium Level 141 mmol/L (136-145) Potassium Level 3.0 mmol/L (3.5-5.1) Chloride Level 104 mmol/L (98-107) Carbon Dioxide Level 28 mmol/L (21-32) Anion Gap 9 (6-14) Blood Urea Nitrogen 25 mg/dL (8-26) Creatinine 1.6 mg/dL (0.7-1.3) Estimated GFR (Cockcroft-Gault) 55.4 Glucose Level 99 mg/dL (70-99) Calcium Level 8.3 mg/dL (8.5-10.1) Medications Active Scripts Medications Dose Route/Sig Max Daily Dose Days Date Category Clonidine Hcl 0.3 Mg Tablet 0.3 Mg PO TID 05/18/18 Reported Losartan-Hctz 100-12.5 Mg Tab (Losartan/Hydrochlorothiazide) 1 Each Tablet 1 Each PO DAILY 05/18/18 Reported Metoprolol Succinate ( Xl ) (Metoprolol Succinate) 25 Mg Tab.er.24h 25 Mg PO DAILY 05/18/18 Reported Impression . IMPRESSION: 1. Acute respiratory failure secondary to acute diastolic heart failure. 2. Abnormal x-ray compatible with vascular congestion. 3. Possible pneumonia. 4. Echocardiogram revealing ejection fraction of 60-65%, PA pressure of 24. 5. Suspect secondary pulmonary hypertension related to heart failure. 6. Non-ST segment elevation secondary to hypertensive urgency. 7. Hypertensive urgency. Plan . PLAN: 1. Continue diuresis per Cardiology. 2. Possible MPI as an outpatient. 3. doxycycline for total of 7 days 4. has snoring, i do recommend psg as out pt. 5. bp control per cardiology discussed w rn, pt DUANE OLGUIN MD May 20, 2018 07:09
[2018-05-20] MEDS: hydroCHLOROthiazide 12.5 MG CAPSULE PO SCH (07:16)
[2018-05-20] MEDS: LOSARTAN POTASSIUM 50 MG TABLET. PO SCH (07:19)
[2018-05-20] MEDS: IPRATRPIUM/ALBUTEROL 0.5/2.5MG 3 ML NEBU. NEB SCH ×4 (07:46→19:48)
[2018-05-20] MEDS ORDERED: amLODIPine BESYLATE 5 MG TABLET PO ONE ×2 (08:30→09:45)
[2018-05-20] MEDS: DOXYCYCLINE HYCLATE 100 MG TABLET PO SCH ×2 (08:32→20:29)
[2018-05-20] MEDS ORDERED: POTASSIUM CHLORIDE 20 MEQ TABLET.ER. PO ONE ×2 (09:15→11:15)
--- NOTE | 2018-05-20 09:49 | PDOC ---
PROGRESS NOTES Subjective Subjective BP still high,200/110 Objective Objective Vital Signs Date Time Temp Pulse Resp B/P (MAP) Pulse Ox O2 Delivery O2 Flow Rate FiO2 05/20/18 08:31 69 197/117 05/20/18 07:47 100 Room Air 05/20/18 07:22 98.6 98.6 05/20/18 03:30 22 05/19/18 08:00 2.0 Intake and Output 05/20/18 07:00 Intake Total 800 ml Balance 800 ml Intake Oral 800 ml # Voids 4 Physical Exam Abdomen: Normal bowel sounds, Soft Heart: Normal S1, Normal S2 Extremities: No edema General: Alert, Oriented X3, Cooperative, No acute distress HEENT: Atraumatic Lungs: Clear to auscultation, Normal air movement MUSCULOSKELETAL: No deformity Neuro: Normal speech Psych/Mental Status: Mental status NL, Mood NL Skin: No rashes, No breakdown Diagnosis Problem List Problems Medical Problems: (1) Acute pulmonary edema Status: Acute Assessment Assessment Problems Medical Problems: (1) Acute pulmonary edema Status: Acute FINAL IMPRESSION: 1. Acute congestive heart failure/pulmonary edema. 2. Hypertensive emergency.200/110 3. Chronic renal insufficiency. 4. Questionable history of asthma. PLAN: stress test today add amlodipine+hydralazine for bp control pot 3.0 replace pot. cr 1.6 sono kidneys ok renal doppler no stenosis cxr improving ? home tomorrrow echo good lvf Plan Plan of Care Problems Medical Problems: (1) Acute pulmonary edema Status: Acute Comment Review of Relevant I have reviewed the following items samaria (where applicable) has been applied. Labs Laboratory Tests Test 05/20/18 05:00 Sodium Level 141 mmol/L (136-145) Potassium Level 3.0 mmol/L (3.5-5.1) Chloride Level 104 mmol/L (98-107) Carbon Dioxide Level 28 mmol/L (21-32) Anion Gap 9 (6-14) Blood Urea Nitrogen 25 mg/dL (8-26) Creatinine 1.6 mg/dL (0.7-1.3) Estimated GFR (Cockcroft-Gault) 55.4 Glucose Level 99 mg/dL (70-99) Calcium Level 8.3 mg/dL (8.5-10.1) Medications Current Medications Albuterol/ Ipratropium (Duoneb) 3 ml 1X ONCE NEB ; Start 05/19/18 at 10:30; Stop 05/19/18 at 10:31; Status DC Albuterol/ Ipratropium (Duoneb) 3 ml RTQID NEB Last administered on 05/20/18at 07:46; Start 05/19/18 at 12:00 Amlodipine Besylate (Norvasc) 10 mg 1X ONCE PO Last administered on 05/20/18at 08:31; Start 05/20/18 at 08:30; Stop 05/20/18 at 08:31; Status DC Aspirin (InspireMD Aspirin) 325 mg 1X ONCE PO Last administered on 05/19/18at 13:32 ; Start 05/19/18 at 10:30; Stop 05/19/18 at 10:31; Status DC Aspirin (InspireMD Aspirin) 325 mg DAILYWBKFT PO ; Start 05/20/18 at 08:00 Atorvastatin Calcium (Lipitor) 10 mg QHS PO Last administered on 05/19/18at 19: 44; Start 05/19/18 at 21:00 Doxycycline Hyclate (Vibra-Tab) 100 mg BID PO Last administered on 05/20/18at 08 :32; Start 05/19/18 at 13:30 Hydralazine HCl (Apresoline) 50 mg TID PO ; Start 05/20/18 at 14:00 Labetalol HCl (Normodyne Iv Push) 10 mg PRN Q2HR PRN IVP HYPERTENSION, SEE COMMENTS Last administered on 05/20/18at 04:38; Start 05/19/18 at 17:30 Lactobacillus Rhamnosus (Culturelle) 1 cap BID PO Last administered on at 19:43; Start 05/19/18 at 21:00 Metoprolol Succinate (Toprol Xl) 50 mg DAILY PO ; Start 05/20/18 at 09:30 Potassium Chloride (Klor-Con) 20 meq 1X ONCE PO ; Start 05/20/18 at 11:15; Stop 05/20/18 at 11:16 Potassium Chloride (Klor-Con) 40 meq 1X ONCE PO ; Start 05/20/18 at 09:15; Stop 05/20/18 at 09:16; Status DC Vitals/I & O Vital Sign - Last 24 Hours 05/19/18 05/19/18 05/19/18 05/19/18 10:00 11:05 12:00 12:00 Pulse 62 58 B/P (MAP) 173/95 (121) 155/88 (110) Pulse Ox 93 95 94 O2 Delivery Room Air Room Air Room Air Room Air 05/19/18 05/19/18 05/19/18 05/19/18 13:00 13:33 14:00 15:03 Temp 97.0 97.0 Pulse 60 67 66 59 B/P (MAP) 153/87 (109) 161/85 152/86 (108) 161/85 (110) Pulse Ox 92 90 92 O2 Delivery Room Air Room Air Room Air 05/19/18 05/19/18 05/19/18 05/19/18 15:37 16:00 17:00 17:37 Temp 98.0 98.0 Pulse 71 70 Resp 16 B/P (MAP) 185/84 (117) 176/86 Pulse Ox 95 96 O2 Delivery Room Air Room Air Room Air 05/19/18 05/19/18 05/19/18 05/19/18 19:00 19:14 19:43 20:03 Temp 97.9 97.9 Pulse 73 Resp 20 B/P (MAP) 172/93 (119) 160/83 Pulse Ox 95 98 O2 Delivery Room Air Room Air Room Air 05/19/18 05/20/18 05/20/18 05/20/18 23:08 03:30 04:38 06:15 Temp 98.2 98.6 98.2 98.6 Pulse 67 67 Resp 22 B/P (MAP) 176/91 (119) 199/118 (145) 199/115 187/94 Pulse Ox 98 98 O2 Delivery Room Air Room Air 05/20/18 05/20/18 05/20/18 05/20/18 06:21 07:19 07:22 07:47 Temp 98.6 98.6 Pulse 69 69 B/P (MAP) 187/94 (125) 197/117 197/117 (143) Pulse Ox 98 100 O2 Delivery Room Air Room Air 05/20/18 08:31 Pulse 69 B/P (MAP) 197/117 Intake and Output 05/19/18 05/19/18 05/20/18 15:00 23:00 07:00 Intake Total 0 ml 800 ml Balance 0 ml 800 ml NEETU GONZALEZ MD May 20, 2018 09:49
[2018-05-20] MEDS: METOPROLOL SUCC 24HR ER 50 MG TAB.ER.24H. PO SCH (10:34)
[2018-05-20] MEDS: ASPIRIN 325 MG TABLET PO SCH (10:35)
[2018-05-20] MEDS: LACTOBACILLUS RHAMNOSUS GG 1 CAPSULE. PO SCH ×2 (10:35→20:29)
--- NOTE | 2018-05-20 10:52 | PDOC ---
PROGRESS NOTES Subjective Subjective Patient seen and examined Objective Objective Vital Signs Date Time Temp Pulse Resp B/P (MAP) Pulse Ox O2 Delivery O2 Flow Rate FiO2 05/20/18 10:34 69 197/117 05/20/18 07:47 100 Room Air 05/20/18 07:22 98.6 98.6 05/20/18 03:30 22 05/19/18 08:00 2.0 Intake and Output 05/20/18 07:00 Intake Total 800 ml Balance 800 ml Intake Oral 800 ml # Voids 4 Physical Exam Abdomen: Normal bowel sounds Heart: Regular rate General: No acute distress Lungs: Clear to auscultation Assessment Assessment Problems Medical Problems: (1) Acute pulmonary edema Status: Acute 1. pulmonary edema secondary to hypertensive urgency. Significantly improved today. However her blood pressure remains high. Norvasc started. Continuing to monitor. 2. NSTEMI secondary to hypertensive urgency. trop peaked @ 0.29; likely demand mediated. No acute EKG changes. Echocardiogram shows intact LV systolic function. MPI testing today ( 2 day test). 3. lipids controlled 4. Hypokalemia. K of 3.0. Being replaced. Comment Review of Relevant I have reviewed the following items samaria (where applicable) has been applied. Labs Laboratory Tests Test 05/18/18 22:31 05/18/18 23:02 05/19/18 02:07 05/19/18 02:40 O2 Saturation 97 % (92-99) Arterial Blood pH 7.41 (7.35-7.45) Arterial Blood pCO2 at Patient Temp 41 mmHg (35-46) Arterial Blood pO2 at Patient Temp 86 mmHg (75-108) Arterial Blood HCO3 26 mmol/L (21-28) Arterial Blood Base Excess 1 mmol/L (-3-3) FiO2 70.0 White Blood Count 7.4 x10^3/uL (4.0-11.0) Red Blood Count 5.55 x10^6/uL (4.30-5.70) Hemoglobin 14.9 g/dL (13.0-17.5) Hematocrit 44.0 % (39.0-53.0) Mean Corpuscular Volume 79 fL (79-100) Mean Corpuscular Hemoglobin 27 pg (25-35) Mean Corpuscular Hemoglobin Concent 34 g/dL (31-37) Red Cell Distribution Width 14.9 % (11.5-14.5) Platelet Count 184 x10^3/uL (140-400) Neutrophils (%) (Auto) 76 % (31-73) Lymphocytes (%) (Auto) 17 % (24-48) Monocytes (%) (Auto) 5 % (0-9) Eosinophils (%) (Auto) 1 % (0-3) Basophils (%) (Auto) 1 % (0-3) Neutrophils # (Auto) 5.6 x10^3uL (1.8-7.7) Lymphocytes # (Auto) 1.3 x10^3/uL (1.0-4.8) Monocytes # (Auto) 0.3 x10^3/uL (0.0-1.1) Eosinophils # (Auto) 0.1 x10^3/uL (0.0-0.7) Basophils # (Auto) 0.0 x10^3/uL (0.0-0.2) Prothrombin Time 13.2 SEC (11.7-14.0) Prothromb Time International Ratio 1.1 (0.8-1.1) Sodium Level 141 mmol/L (136-145) Potassium Level 3.1 mmol/L (3.5-5.1) Chloride Level 104 mmol/L (98-107) Carbon Dioxide Level 30 mmol/L (21-32) Anion Gap 7 (6-14) Blood Urea Nitrogen 24 mg/dL (8-26) Creatinine 1.7 mg/dL (0.7-1.3) Estimated GFR (Cockcroft-Gault) 51.7 BUN/Creatinine Ratio 14 (6-20) Glucose Level 119 mg/dL (70-99) Calcium Level 8.4 mg/dL (8.5-10.1) Total Bilirubin 0.5 mg/dL (0.2-1.0) Aspartate Amino Transf (AST/SGOT) 27 U/L (15-37) Alanine Aminotransferase (ALT/SGPT) 36 U/L (16-63) Alkaline Phosphatase 83 U/L (46-116) Troponin I Quantitative 0.293 ng/mL (0.000-0.055) YH-Fyt-N-Type Natriuretic Peptide 1902 pg/mL (0-124) Total Protein 7.8 g/dL (6.4-8.2) Albumin 3.2 g/dL (3.4-5.0) Albumin/Globulin Ratio 0.7 (1.0-1.7) Ethyl Alcohol Level < 10 mg/dL (0-10) Urine Opiates Screen Neg (NEG) Urine Methadone Screen Neg (NEG) Urine Barbiturates Neg (NEG) Urine Phencyclidine Screen Neg (NEG) Urine Amphetamine/Methamphetamine Neg (NEG) Urine Benzodiazepines Screen Neg (NEG) Urine Cocaine Screen Neg (NEG) Urine Cannabinoids Screen Neg (NEG) Urine Ethyl Alcohol Neg (NEG) Nasal Screen MRSA (PCR) Negative (Negative) Test 05/19/18 03:00 05/19/18 06:00 05/20/18 05:00 Troponin I Quantitative 0.268 ng/mL (0.000-0.055) 0.241 ng/mL (0.000-0.055) Thyroid Stimulating Hormone (TSH) 1.151 uIU/mL (0.358-3.74) Sodium Level 141 mmol/L (136-145) 141 mmol/L (136-145) Potassium Level 3.6 mmol/L (3.5-5.1) 3.0 mmol/L (3.5-5.1) Chloride Level 105 mmol/L (98-107) 104 mmol/L (98-107) Carbon Dioxide Level 29 mmol/L (21-32) 28 mmol/L (21-32) Anion Gap 7 (6-14) 9 (6-14) Blood Urea Nitrogen 25 mg/dL (8-26) 25 mg/dL (8-26) Creatinine 1.7 mg/dL (0.7-1.3) 1.6 mg/dL (0.7-1.3) Estimated GFR (Cockcroft-Gault) 51.7 55.4 Glucose Level 131 mg/dL (70-99) 99 mg/dL (70-99) Calcium Level 8.1 mg/dL (8.5-10.1) 8.3 mg/dL (8.5-10.1) Magnesium Level 1.8 mg/dL (1.8-2.4) Triglycerides Level 25 mg/dL (0-150) Cholesterol Level 146 mg/dL (0-200) LDL Cholesterol, Calculated 95 mg/dL (0-100) VLDL Cholesterol, Calculated 5 mg/dL (0-40) Non-HDL Cholesterol Calculated 100 mg/dL (0-129) HDL Cholesterol 46 mg/dL (40-60) Cholesterol/HDL Ratio 3.2 Laboratory Tests Test 05/20/18 05:00 Sodium Level 141 mmol/L (136-145) Potassium Level 3.0 mmol/L (3.5-5.1) Chloride Level 104 mmol/L (98-107) Carbon Dioxide Level 28 mmol/L (21-32) Anion Gap 9 (6-14) Blood Urea Nitrogen 25 mg/dL (8-26) Creatinine 1.6 mg/dL (0.7-1.3) Estimated GFR (Cockcroft-Gault) 55.4 Glucose Level 99 mg/dL (70-99) Calcium Level 8.3 mg/dL (8.5-10.1) Medications Current Medications Nitroglycerin/ Dextrose 250 ml @ As Directed STK-MED ONCE IV ; Start 05/18/18 at 21:57; Stop 05/18/18 at 21:58; Status DC Nitroglycerin/ Dextrose 250 ml @ 0 mls/hr 1X ONCE IV Last administered on 05/18at 21:59; Start 05/18/18 at 22:30; Stop 05/18/18 at 22:31; Status DC Ondansetron HCl (Zofran) 4 mg 1X ONCE IV Last administered on 05/19/18at 00:30 ; Start 05/18/18 at 23:45; Stop 05/18/18 at 23:46; Status DC Aspirin (Children'S Aspirin) 324 mg 1X ONCE PO Last administered on 05/19/18at 00:30; Start 05/19/18 at 00:00; Stop 05/19/18 at 00:01; Status DC Potassium Chloride (KCl Oral Soln) 40 meq 1X ONCE PO Last administered on 05/19at 00:31; Start 05/19/18 at 00:00; Stop 05/19/18 at 00:01; Status DC Furosemide (Lasix) 40 mg 1X ONCE IVP Last administered on 05/19/18at 00:30; Start 05/19/18 at 00:00; Stop 05/19/18 at 00:01; Status DC Clonidine HCl (Catapres) 0.3 mg 1X ONCE PO Last administered on 05/19/18at 03: 21; Start 05/19/18 at 03:30; Stop 05/19/18 at 03:31; Status DC Clonidine HCl (Catapres) 0.3 mg TID PO Last administered on 05/20/18at 06:15; Start 05/19/18 at 09:30 Metoprolol Succinate (Toprol Xl) 25 mg DAILY PO Last administered on 05/19/18at 09:28; Start 05/19/18 at 09:30; Stop 05/20/18 at 09:09; Status DC Non-Formulary Medication (Losartan/ Hydrochlorothiazide (Losartan-Hctz 100-12.5 Mg Tab)) 1 each DAILY PO ; Start 05/19/18 at 09:00; Status UNV Losartan Potassium (Cozaar) 100 mg DAILY PO Last administered on 05/20/18at 07: 19; Start 05/19/18 at 09:30 Hydrochlorothiazide (Microzide) 12.5 mg DAILY PO Last administered on at 07:16; Start 05/19/18 at 09:30 Acetaminophen (Tylenol) 1,000 mg PRN Q6HRS PRN PO HEADACHE Last administered on 05/20/18at 10:35; Start 05/19/18 at 09:00 Albuterol/ Ipratropium (Duoneb) 3 ml 1X ONCE NEB ; Start 05/19/18 at 10:30; Stop 05/19/18 at 10:31; Status DC Albuterol/ Ipratropium (Duoneb) 3 ml RTQID NEB Last administered on 05/20/18at 07:46; Start 05/19/18 at 12:00 Aspirin (AccountNow Aspirin) 325 mg 1X ONCE PO Last administered on 05/19/18at 13:32 ; Start 05/19/18 at 10:30; Stop 05/19/18 at 10:31; Status DC Aspirin (Brad Aspirin) 325 mg DAILYWBKFT PO Last administered on 05/20/18at 10: 35; Start 05/20/18 at 08:00 Atorvastatin Calcium (Lipitor) 10 mg QHS PO Last administered on 05/19/18at 19: 44; Start 05/19/18 at 21:00 Doxycycline Hyclate (Vibra-Tab) 100 mg BID PO Last administered on 05/20/18at 08 :32; Start 05/19/18 at 13:30 Lactobacillus Rhamnosus (Culturelle) 1 cap BID PO Last administered on at 10:35; Start 05/19/18 at 21:00 Labetalol HCl (Normodyne Iv Push) 10 mg PRN Q2HR PRN IVP HYPERTENSION, SEE COMMENTS Last administered on 05/20/18at 04:38; Start 05/19/18 at 17:30 Amlodipine Besylate (Norvasc) 10 mg 1X ONCE PO Last administered on 05/20/18at 08:31; Start 05/20/18 at 08:30; Stop 05/20/18 at 08:31; Status DC Metoprolol Succinate (Toprol Xl) 50 mg DAILY PO Last administered on 05/20/18at 10:34; Start 05/20/18 at 09:30 Potassium Chloride (Klor-Con) 40 meq 1X ONCE PO Last administered on at 10:33; Start 05/20/18 at 09:15; Stop 05/20/18 at 09:16; Status DC Potassium Chloride (Klor-Con) 20 meq 1X ONCE PO ; Start 05/20/18 at 11:15; Stop 05/20/18 at 11:16 Hydralazine HCl (Apresoline) 50 mg TID PO ; Start 05/20/18 at 14:00 Amlodipine Besylate (Norvasc) 5 mg 1X ONCE PO ; Start 05/20/18 at 09:45; Stop 05/20/18 at 09:46; Status Cancel Amlodipine Besylate (Norvasc) 5 mg DAILY PO ; Start 05/20/18 at 11:00; Stop at 11:00; Status DC Amlodipine Besylate (Norvasc) 5 mg DAILY PO ; Start 05/21/18 at 09:00 Active Scripts Active Reported Clonidine Hcl 0.3 Mg Tablet 0.3 Mg PO TID Losartan-Hctz 100-12.5 Mg Tab (Losartan/Hydrochlorothiazide) 1 Each Tablet 1 Each PO DAILY Metoprolol Succinate ( Xl ) (Metoprolol Succinate) 25 Mg Tab.er.24h 25 Mg PO DAILY Vitals/I & O Vital Sign - Last 24 Hours 05/19/18 05/19/18 05/19/18 05/19/18 11:05 12:00 12:00 13:00 Temp 97.0 97.0 Pulse 58 60 B/P (MAP) 155/88 (110) 153/87 (109) Pulse Ox 95 94 92 O2 Delivery Room Air Room Air Room Air Room Air 05/19/18 05/19/18 05/19/18 05/19/18 13:33 14:00 15:03 15:37 Pulse 67 66 59 B/P (MAP) 161/85 152/86 (108) 161/85 (110) Pulse Ox 90 92 95 O2 Delivery Room Air Room Air Room Air 05/19/18 05/19/18 05/19/18 05/19/18 16:00 17:00 17:37 19:00 Temp 98.0 97.9 98.0 97.9 Pulse 71 70 73 Resp 16 20 B/P (MAP) 185/84 (117) 176/86 172/93 (119) Pulse Ox 96 95 O2 Delivery Room Air Room Air Room Air 05/19/18 05/19/18 05/19/18 05/19/18 19:14 19:43 20:03 23:08 Temp 98.2 98.2 Pulse 67 B/P (MAP) 160/83 176/91 (119) Pulse Ox 98 98 O2 Delivery Room Air Room Air Room Air 05/20/18 05/20/18 05/20/18 05/20/18 03:30 04:38 06:15 06:21 Temp 98.6 98.6 Pulse 67 Resp 22 B/P (MAP) 199/118 (145) 199/115 187/94 187/94 (125) Pulse Ox 98 O2 Delivery Room Air 05/20/18 05/20/18 05/20/18 05/20/18 07:19 07:22 07:47 08:31 Temp 98.6 98.6 Pulse 69 69 69 B/P (MAP) 197/117 197/117 (143) 197/117 Pulse Ox 98 100 O2 Delivery Room Air Room Air 05/20/18 10:34 Pulse 69 B/P (MAP) 197/117 Intake and Output 05/19/18 05/19/18 05/20/18 15:00 23:00 07:00 Intake Total 0 ml 800 ml Balance 0 ml 800 ml TUCKER FRAGOSO MD May 20, 2018 10:52
[2018-05-20] MEDS ORDERED: amLODIPine BESYLATE 5 MG TABLET PO SCH (11:00)
[2018-05-20] MEDS: ATORVASTATIN CALCIUM 10 MG TABLET. PO SCH (21:00)
[2018-05-21] VITALS (7 sets, daily range): BP systolic 149–205; BP diastolic 74–115
[2018-05-21] MEDS: LABETALOL 20 MG/4 ML DISP.SYRIN. IVP PRN (04:27)
[2018-05-21 05:10] LABS: CALCIUM 8.3 mg/dL (8.5-10.1); CREATININE 1.4 mg/dL (0.7-1.3); GFR 64.6; POTASSIUM 3.1 mmol/L (3.5-5.1)
[2018-05-21] MEDS: cloNIDine HCL 0.3 MG TABLET PO SCH ×3 (06:45→20:31)
--- NOTE | 2018-05-21 06:51 | PDOC ---
PULMONARY PROGRESS NOTES Subjective sob better, no cough, no cp, bp not controlled Vitals Vital Signs Date Time Temp Pulse Resp B/P (MAP) Pulse Ox O2 Delivery O2 Flow Rate FiO2 05/21/18 06:45 193/112 05/21/18 03:00 98.8 68 98 Room Air 98.8 05/20/18 23:06 22 05/20/18 07:45 2.0 ROS: No Nausea, No Chest Pain General: Alert, Oriented X4 HEENT: Other (nc at perrl shallow oropharynx. nose clear ) Lungs: Crackles Cardiovascular: S2 Abdomen: Soft, Non-tender Neuro Exam: Alert Extremities: No Edema Skin: Warm Labs Laboratory Tests Test 05/20/18 05:00 05/21/18 04:00 Sodium Level 141 mmol/L (136-145) 138 mmol/L (136-145) Potassium Level 3.0 mmol/L (3.5-5.1) 3.1 mmol/L (3.5-5.1) Chloride Level 104 mmol/L (98-107) 104 mmol/L (98-107) Carbon Dioxide Level 28 mmol/L (21-32) 28 mmol/L (21-32) Anion Gap 9 (6-14) 6 (6-14) Blood Urea Nitrogen 25 mg/dL (8-26) 18 mg/dL (8-26) Creatinine 1.6 mg/dL (0.7-1.3) 1.4 mg/dL (0.7-1.3) Estimated GFR (Cockcroft-Gault) 55.4 64.6 Glucose Level 99 mg/dL (70-99) 104 mg/dL (70-99) Calcium Level 8.3 mg/dL (8.5-10.1) 8.3 mg/dL (8.5-10.1) Laboratory Tests Test 05/21/18 04:00 Sodium Level 138 mmol/L (136-145) Potassium Level 3.1 mmol/L (3.5-5.1) Chloride Level 104 mmol/L (98-107) Carbon Dioxide Level 28 mmol/L (21-32) Anion Gap 6 (6-14) Blood Urea Nitrogen 18 mg/dL (8-26) Creatinine 1.4 mg/dL (0.7-1.3) Estimated GFR (Cockcroft-Gault) 64.6 Glucose Level 104 mg/dL (70-99) Calcium Level 8.3 mg/dL (8.5-10.1) Medications Active Scripts Medications Dose Route/Sig Max Daily Dose Days Date Category Clonidine Hcl 0.3 Mg Tablet 0.3 Mg PO TID 05/18/18 Reported Losartan-Hctz 100-12.5 Mg Tab (Losartan/Hydrochlorothiazide) 1 Each Tablet 1 Each PO DAILY 05/18/18 Reported Metoprolol Succinate ( Xl ) (Metoprolol Succinate) 25 Mg Tab.er.24h 25 Mg PO DAILY 05/18/18 Reported Comments echo The left ventricular systolic function is normal. The Ejection Fraction is 60-65%. There is normal LV segmental wall motion. Trace mitral regurgitation. Trace tricuspid regurgitation. The PA pressure was estimated at 24 mmHg. There is no evidence of significant pericardial effusion. Impression . IMPRESSION: 1. Acute respiratory failure secondary to acute diastolic heart failure. 2. Abnormal x-ray compatible with vascular congestion. 3. ? pneumonia. 4. Echocardiogram revealing ejection fraction of 60-65%, PA pressure of 24. 5. Hypertensive urgency. 6. Non-ST segment elevation secondary to hypertensive urgency. 7. ? denny Plan . PLAN: 1. Continue diuresis per Cardiology. keep I<O, monitor cr, k 2. Hypertensive urgency. 3. doxycycline for total of 7 days 4. has snoring, i do recommend psg as out pt. 5. bp control per cardiology 6. BD pipe w rn, pt DUANE OLGUIN MD May 21, 2018 06:51
[2018-05-21] MEDS: ACETAMINOPHEN 500 MG TABLET PO PRN ×2 (07:55→11:24)
[2018-05-21] MEDS: IPRATRPIUM/ALBUTEROL 0.5/2.5MG 3 ML NEBU. NEB SCH ×4 (08:17→19:04)
[2018-05-21] MEDS ORDERED: REGADENOSON 0.4 MG/5 ML DISP.SYRIN. IV ONE (09:00)
[2018-05-21] MEDS ORDERED: amLODIPine BESYLATE 5 MG TABLET PO SCH (09:00)
[2018-05-21] MEDS ORDERED: POTASSIUM CHLORIDE 20 MEQ TABLET.ER. PO ONE ×3 (10:15→18:00)
--- NOTE | 2018-05-21 10:48 | PDOC ---
PROGRESS NOTES Subjective Subjective stress test today Objective Objective Vital Signs Date Time Temp Pulse Resp B/P (MAP) Pulse Ox O2 Delivery O2 Flow Rate FiO2 05/21/18 08:19 99 Room Air 05/21/18 06:45 193/112 05/21/18 03:00 98.8 68 98.8 05/20/18 23:06 22 05/20/18 07:45 2.0 Intake and Output 05/21/18 07:00 Intake Total 1100 ml Balance 1100 ml Intake Oral 1100 ml # Voids 5 Physical Exam Abdomen: Normal bowel sounds Heart: Regular rate Extremities: No edema General: No acute distress HEENT: Atraumatic Lungs: Clear to auscultation MUSCULOSKELETAL: No deformity Neuro: Normal speech Psych/Mental Status: Mental status NL, Mood NL Skin: No rashes, No breakdown Diagnosis Problem List Problems Medical Problems: (1) Acute pulmonary edema Status: Acute Assessment Assessment Problems Medical Problems: (1) Acute pulmonary edema Status: Acute FINAL IMPRESSION: 1. Acute congestive heart failure/pulmonary edema. 2. Hypertensive emergency.200/110 3. Chronic renal insufficiency. 4. Questionable history of asthma. PLAN: stress test today add amlodipine+hydralazine for bp control pot 3.1 replace pot. cr 1.4 trending down. sono kidneys ok renal doppler no stenosis cxr improving ? home today Echo good lvf Plan Plan of Care Problems Medical Problems: (1) Acute pulmonary edema Status: Acute Comment Review of Relevant I have reviewed the following items samaria (where applicable) has been applied. Labs Laboratory Tests Test 05/21/18 04:00 Sodium Level 138 mmol/L (136-145) Potassium Level 3.1 mmol/L (3.5-5.1) Chloride Level 104 mmol/L (98-107) Carbon Dioxide Level 28 mmol/L (21-32) Anion Gap 6 (6-14) Blood Urea Nitrogen 18 mg/dL (8-26) Creatinine 1.4 mg/dL (0.7-1.3) Estimated GFR (Cockcroft-Gault) 64.6 Glucose Level 104 mg/dL (70-99) Calcium Level 8.3 mg/dL (8.5-10.1) Medications Current Medications Amlodipine Besylate (Norvasc) 5 mg DAILY PO ; Start 05/20/18 at 11:00; Stop at 11:00; Status DC Amlodipine Besylate (Norvasc) 5 mg DAILY PO ; Start 05/21/18 at 09:00; Stop at 09:40; Status DC Amlodipine Besylate (Norvasc) 10 mg DAILY PO ; Start 05/21/18 at 09:45 Hydralazine HCl (Apresoline) 50 mg TID PO Last administered on 05/21/18at 06:45 ; Start 05/20/18 at 14:00 Potassium Chloride (Klor-Con) 20 meq 1X ONCE PO ; Start 05/20/18 at 11:15; Stop 05/20/18 at 14:06; Status DC Potassium Chloride (Klor-Con) 20 meq 1X ONCE PO ; Start 05/21/18 at 11:00; Stop 05/21/18 at 11:01 Potassium Chloride (Klor-Con) 20 meq DAILYWBKFT PO ; Start 05/21/18 at 08:00 Potassium Chloride (Klor-Con) 40 meq 1X ONCE PO ; Start 05/21/18 at 10:15; Stop 05/21/18 at 10:16; Status DC Regadenoson (Lexiscan) 0.4 mg 1X ONCE IV Last administered on 05/21/18at 09:00 ; Start 05/21/18 at 09:00; Stop 05/21/18 at 09:01; Status DC Vitals/I & O Vital Sign - Last 24 Hours 05/20/18 05/20/18 05/20/18 05/20/18 11:34 11:57 13:12 13:13 Temp 98.4 98.4 Pulse 70 70 70 Resp 16 B/P (MAP) 201/104 (136) 201/104 201/104 Pulse Ox 99 O2 Delivery Room Air Room Air 05/20/18 05/20/18 05/20/18 05/20/18 13:16 15:00 15:14 19:30 Temp 97.8 98.1 97.8 98.1 Pulse 70 68 Resp 18 24 B/P (MAP) 201/104 177/97 (123) 180/101 (127) Pulse Ox 99 99 O2 Delivery Room Air Room Air Room Air 05/20/18 05/20/18 05/20/18 05/20/18 19:48 19:48 20:30 20:30 Pulse 70 B/P (MAP) 188/105 188/105 Pulse Ox 99 O2 Delivery Room Air Room Air 05/20/18 05/21/18 05/21/18 05/21/18 23:06 00:05 03:00 04:27 Temp 98.9 98.8 98.9 98.8 Pulse 71 68 Resp 22 B/P (MAP) 163/95 (117) 171/102 (125) 195/113 (140) 181/110 Pulse Ox 94 98 O2 Delivery Room Air Room Air 05/21/18 05/21/18 05/21/18 05/21/18 06:08 06:45 06:45 08:00 B/P (MAP) 175/94 (121) 193/112 193/112 O2 Delivery Room Air 05/21/18 08:19 Pulse Ox 99 O2 Delivery Room Air Intake and Output 05/20/18 05/20/18 05/21/18 15:00 23:00 07:00 Intake Total 300 ml 600 ml 200 ml Balance 300 ml 600 ml 200 ml NEETU GONZALEZ MD May 21, 2018 10:48
[2018-05-21] MEDS ORDERED: HYDR-2869 PO (10:52)
[2018-05-21] MEDS ORDERED: METO50TA29 PO (10:52)
[2018-05-21] MEDS ORDERED: ATOR10TA60 PO (10:52)
[2018-05-21] MEDS ORDERED: AMLO10TA6 PO (10:52)
[2018-05-21] MEDS: ASPIRIN 325 MG TABLET PO SCH (11:24)
[2018-05-21] MEDS: DOXYCYCLINE HYCLATE 100 MG TABLET PO SCH ×2 (11:24→20:32)
[2018-05-21] MEDS: POTASSIUM CHLORIDE 20 MEQ TABLET.ER. PO SCH (11:25)
[2018-05-21] MEDS: LACTOBACILLUS RHAMNOSUS GG 1 CAPSULE. PO SCH ×2 (11:25→20:32)
[2018-05-21] MEDS: hydroCHLOROthiazide 12.5 MG CAPSULE PO SCH (11:26)
[2018-05-21] MEDS: METOPROLOL SUCC 24HR ER 50 MG TAB.ER.24H. PO SCH (11:26)
[2018-05-21] MEDS: amLODIPine BESYLATE 10 MG TABLET PO SCH (11:26)
[2018-05-21] MEDS: LOSARTAN POTASSIUM 50 MG TABLET. PO SCH (11:27)
--- NOTE | 2018-05-21 12:20 | PDOC ---
PROGRESS NOTES Subjective Subjective Patient seen and examined Objective Objective Vital Signs Date Time Temp Pulse Resp B/P (MAP) Pulse Ox O2 Delivery O2 Flow Rate FiO2 05/21/18 12:02 Room Air 05/21/18 11:27 97.4 77 21 174/90 (118) 99 97.4 05/20/18 07:45 2.0 Intake and Output 05/21/18 07:00 Intake Total 1100 ml Balance 1100 ml Intake Oral 1100 ml # Voids 5 Physical Exam Abdomen: Normal bowel sounds Heart: Regular rate General: No acute distress Lungs: Clear to auscultation Assessment Assessment Problems Medical Problems: (1) Acute pulmonary edema Status: Acute 1. pulmonary edema secondary to hypertensive urgency. Resolved. However her blood pressure remains high. Norvasc increased. Continue other meds.started. Ultrasound study shows no MAXX. 2. NSTEMI secondary to hypertensive urgency. trop peaked @ 0.29; likely demand mediated. No acute EKG changes. Echocardiogram shows intact LV systolic function. MPI testing being completed today. 3. lipids controlled 4. Hypokalemia. K of 3.1. Replacement continuing. Comment Review of Relevant I have reviewed the following items samaria (where applicable) has been applied. Labs Laboratory Tests Test 05/20/18 05:00 05/21/18 04:00 Sodium Level 141 mmol/L (136-145) 138 mmol/L (136-145) Potassium Level 3.0 mmol/L (3.5-5.1) 3.1 mmol/L (3.5-5.1) Chloride Level 104 mmol/L (98-107) 104 mmol/L (98-107) Carbon Dioxide Level 28 mmol/L (21-32) 28 mmol/L (21-32) Anion Gap 9 (6-14) 6 (6-14) Blood Urea Nitrogen 25 mg/dL (8-26) 18 mg/dL (8-26) Creatinine 1.6 mg/dL (0.7-1.3) 1.4 mg/dL (0.7-1.3) Estimated GFR (Cockcroft-Gault) 55.4 64.6 Glucose Level 99 mg/dL (70-99) 104 mg/dL (70-99) Calcium Level 8.3 mg/dL (8.5-10.1) 8.3 mg/dL (8.5-10.1) Laboratory Tests Test 05/21/18 04:00 Sodium Level 138 mmol/L (136-145) Potassium Level 3.1 mmol/L (3.5-5.1) Chloride Level 104 mmol/L (98-107) Carbon Dioxide Level 28 mmol/L (21-32) Anion Gap 6 (6-14) Blood Urea Nitrogen 18 mg/dL (8-26) Creatinine 1.4 mg/dL (0.7-1.3) Estimated GFR (Cockcroft-Gault) 64.6 Glucose Level 104 mg/dL (70-99) Calcium Level 8.3 mg/dL (8.5-10.1) Medications Current Medications Nitroglycerin/ Dextrose 250 ml @ As Directed STK-MED ONCE IV ; Start 05/18/18 at 21:57; Stop 05/18/18 at 21:58; Status DC Nitroglycerin/ Dextrose 250 ml @ 0 mls/hr 1X ONCE IV Last administered on 05/18at 21:59; Start 05/18/18 at 22:30; Stop 05/18/18 at 22:31; Status DC Ondansetron HCl (Zofran) 4 mg 1X ONCE IV Last administered on 05/19/18at 00:30 ; Start 05/18/18 at 23:45; Stop 05/18/18 at 23:46; Status DC Aspirin (Children'S Aspirin) 324 mg 1X ONCE PO Last administered on 05/19/18at 00:30; Start 05/19/18 at 00:00; Stop 05/19/18 at 00:01; Status DC Potassium Chloride (KCl Oral Soln) 40 meq 1X ONCE PO Last administered on 05/19at 00:31; Start 05/19/18 at 00:00; Stop 05/19/18 at 00:01; Status DC Furosemide (Lasix) 40 mg 1X ONCE IVP Last administered on 05/19/18at 00:30; Start 05/19/18 at 00:00; Stop 05/19/18 at 00:01; Status DC Clonidine HCl (Catapres) 0.3 mg 1X ONCE PO Last administered on 05/19/18at 03: 21; Start 05/19/18 at 03:30; Stop 05/19/18 at 03:31; Status DC Clonidine HCl (Catapres) 0.3 mg TID PO Last administered on 05/21/18at 06:45; Start 05/19/18 at 09:30 Metoprolol Succinate (Toprol Xl) 25 mg DAILY PO Last administered on 05/19/18at 09:28; Start 05/19/18 at 09:30; Stop 05/20/18 at 09:09; Status DC Non-Formulary Medication (Losartan/ Hydrochlorothiazide (Losartan-Hctz 100-12.5 Mg Tab)) 1 each DAILY PO ; Start 05/19/18 at 09:00; Status UNV Losartan Potassium (Cozaar) 100 mg DAILY PO Last administered on 05/21/18 11: 27; Start 05/19/18 at 09:30 Hydrochlorothiazide (Microzide) 12.5 mg DAILY PO Last administered on 11:26; Start 05/19/18 at 09:30 Acetaminophen (Tylenol) 1,000 mg PRN Q6HRS PRN PO HEADACHE Last administered on 05/21/18at 11:24; Start 05/19/18 at 09:00 Albuterol/ Ipratropium (Duoneb) 3 ml 1X ONCE NEB ; Start 05/19/18 at 10:30; Stop 05/19/18 at 10:31; Status DC Albuterol/ Ipratropium (Duoneb) 3 ml RTQID NEB Last administered on 05/21/18at 12:01; Start 05/19/18 at 12:00 Aspirin (Brad Aspirin) 325 mg 1X ONCE PO Last administered on 05/19/18at 13:32 ; Start 05/19/18 at 10:30; Stop 05/19/18 at 10:31; Status DC Aspirin (Brad Aspirin) 325 mg DAILYWBKFT PO Last administered on 05/21/18at 11: 24; Start 05/20/18 at 08:00 Atorvastatin Calcium (Lipitor) 10 mg QHS PO Last administered on 05/20/18at 21: 00; Start 05/19/18 at 21:00 Doxycycline Hyclate (Vibra-Tab) 100 mg BID PO Last administered on 05/21/18at 11 :24; Start 05/19/18 at 13:30 Lactobacillus Rhamnosus (Culturelle) 1 cap BID PO Last administered on at 11:25; Start 05/19/18 at 21:00 Labetalol HCl (Normodyne Iv Push) 10 mg PRN Q2HR PRN IVP HYPERTENSION, SEE COMMENTS Last administered on 05/21/18at 04:27; Start 05/19/18 at 17:30 Amlodipine Besylate (Norvasc) 10 mg 1X ONCE PO Last administered on 05/20/18at 08:31; Start 05/20/18 at 08:30; Stop 05/20/18 at 08:31; Status DC Metoprolol Succinate (Toprol Xl) 50 mg DAILY PO Last administered on 05/21/18at 11:26; Start 05/20/18 at 09:30 Potassium Chloride (Klor-Con) 40 meq 1X ONCE PO Last administered on at 10:33; Start 05/20/18 at 09:15; Stop 05/20/18 at 09:16; Status DC Potassium Chloride (Klor-Con) 20 meq 1X ONCE PO ; Start 05/20/18 at 11:15; Stop 05/20/18 at 14:06; Status DC Hydralazine HCl (Apresoline) 50 mg TID PO Last administered on 05/21/18at 06:45 ; Start 05/20/18 at 14:00 Amlodipine Besylate (Norvasc) 5 mg 1X ONCE PO ; Start 05/20/18 at 09:45; Stop 05/20/18 at 09:46; Status Cancel Amlodipine Besylate (Norvasc) 5 mg DAILY PO ; Start 05/20/18 at 11:00; Stop at 11:00; Status DC Amlodipine Besylate (Norvasc) 5 mg DAILY PO ; Start 05/21/18 at 09:00; Stop at 09:40; Status DC Potassium Chloride (Klor-Con) 20 meq DAILYWBKFT PO Last administered on at 11:25; Start 05/21/18 at 08:00 Regadenoson (Lexiscan) 0.4 mg 1X ONCE IV Last administered on 05/21/18at 09:00 ; Start 05/21/18 at 09:00; Stop 05/21/18 at 09:01; Status DC Amlodipine Besylate (Norvasc) 10 mg DAILY PO Last administered on 05/21/18at 11: 26; Start 05/21/18 at 09:45 Potassium Chloride (Klor-Con) 20 meq 1X ONCE PO Last administered on at 11:25; Start 05/21/18 at 11:00; Stop 05/21/18 at 11:01; Status DC Potassium Chloride (Klor-Con) 40 meq 1X ONCE PO Last administered on at 11:25; Start 05/21/18 at 10:15; Stop 05/21/18 at 10:16; Status DC Active Scripts Active Reported Clonidine Hcl 0.3 Mg Tablet 0.3 Mg PO TID Losartan-Hctz 100-12.5 Mg Tab (Losartan/Hydrochlorothiazide) 1 Each Tablet 1 Each PO DAILY Metoprolol Succinate ( Xl ) (Metoprolol Succinate) 25 Mg Tab.er.24h 25 Mg PO DAILY Vitals/I & O Vital Sign - Last 24 Hours 05/20/18 05/20/18 05/20/18 05/20/18 13:12 13:13 13:16 15:00 Temp 97.8 97.8 Pulse 70 70 70 Resp 18 B/P (MAP) 201/104 201/104 201/104 177/97 (123) O2 Delivery Room Air 05/20/18 05/20/18 05/20/18 05/20/18 15:14 19:30 19:48 19:48 Temp 98.1 98.1 Pulse 68 Resp 24 B/P (MAP) 180/101 (127) Pulse Ox 99 99 99 O2 Delivery Room Air Room Air Room Air Room Air 05/20/18 05/20/18 05/20/18 05/21/18 20:30 20:30 23:06 00:05 Temp 98.9 98.9 Pulse 70 71 Resp 22 B/P (MAP) 188/105 188/105 163/95 (117) 171/102 (125) Pulse Ox 94 O2 Delivery Room Air 05/21/18 05/21/18 05/21/18 05/21/18 03:00 04:27 06:08 06:45 Temp 98.8 98.8 Pulse 68 B/P (MAP) 195/113 (140) 181/110 175/94 (121) 193/112 Pulse Ox 98 O2 Delivery Room Air 05/21/18 05/21/18 05/21/18 05/21/18 06:45 08:00 08:19 11:26 Pulse 68 B/P (MAP) 193/112 193/112 Pulse Ox 99 O2 Delivery Room Air Room Air 05/21/18 05/21/18 05/21/18 05/21/18 11:26 11:27 11:27 12:02 Temp 97.4 97.4 Pulse 68 68 77 Resp 21 B/P (MAP) 193/112 193/112 174/90 (118) Pulse Ox 99 O2 Delivery Room Air Room Air Intake and Output 05/20/18 05/20/18 05/21/18 15:00 23:00 07:00 Intake Total 300 ml 600 ml 200 ml Balance 300 ml 600 ml 200 ml TUCKER FRAGOSO MD May 21, 2018 12:20
[2018-05-21] MEDS: ATORVASTATIN CALCIUM 10 MG TABLET. PO SCH (20:31)
[2018-05-22] VITALS (16 sets, daily range): BP systolic 149–194; BP diastolic 87–113
[2018-05-22] MEDS: LABETALOL 20 MG/4 ML DISP.SYRIN. IVP PRN ×2 (03:56→10:41)
[2018-05-22] MEDS: IPRATRPIUM/ALBUTEROL 0.5/2.5MG 3 ML NEBU. NEB SCH ×4 (07:30→20:21)
[2018-05-22] MEDS: ASPIRIN 325 MG TABLET PO SCH (07:36)
[2018-05-22] MEDS: DOXYCYCLINE HYCLATE 100 MG TABLET PO SCH ×2 (07:37→21:35)
[2018-05-22] MEDS: LOSARTAN POTASSIUM 50 MG TABLET. PO SCH (07:38)
[2018-05-22] MEDS: cloNIDine HCL 0.3 MG TABLET PO SCH ×3 (07:38→21:36)
[2018-05-22] MEDS: hydroCHLOROthiazide 12.5 MG CAPSULE PO SCH (07:38)
[2018-05-22] MEDS: amLODIPine BESYLATE 10 MG TABLET PO SCH (07:39)
[2018-05-22] MEDS: METOPROLOL SUCC 24HR ER 50 MG TAB.ER.24H. PO SCH (07:40)
[2018-05-22] MEDS: IV NORMAL SALINE 1000ML BAG 1,000 ML IV SCH ×2 (08:00→21:20)
[2018-05-22 09:51] LABS: CALCIUM 8.8 mg/dL (8.5-10.1); CREATININE 1.2 mg/dL (0.7-1.3); GFR 77.2
--- NOTE | 2018-05-22 10:06 | PDOC ---
PROGRESS NOTES Subjective Subjective going for cardiac cath, abnormal stress test Objective Objective Vital Signs Date Time Temp Pulse Resp B/P (MAP) Pulse Ox O2 Delivery O2 Flow Rate FiO2 05/22/18 07:57 98.2 66 18 194/113 (140) 98 Room Air 98.2 Intake and Output 05/22/18 07:00 Intake Total 600 ml Balance 600 ml Intake Oral 600 ml # Voids 6 Physical Exam Abdomen: Normal bowel sounds Heart: Regular rate Extremities: No edema General: No acute distress HEENT: Atraumatic Lungs: Clear to auscultation MUSCULOSKELETAL: No deformity Neuro: Normal speech Psych/Mental Status: Mental status NL, Mood NL Skin: No rashes, No breakdown Diagnosis Problem List Problems Medical Problems: (1) Acute pulmonary edema Status: Acute Assessment Assessment Problems Medical Problems: (1) Acute pulmonary edema Status: Acute FINAL IMPRESSION:Abnormal stress test for non stemi 1. Acute congestive heart failure/pulmonary edema. 2. Hypertensive emergency.200/110 3. Chronic renal insufficiency. 4. Questionable history of asthma. PLAN: cardaic cath today stress test abnormal.renal consult for refractory htn add amlodipine+hydralazine for bp control pot 4.0 replace pot. cr 1.2 trending down. sono kidneys ok renal doppler no stenosis cxr improving ? home today Echo good lvf Plan Plan of Care Problems Medical Problems: (1) Acute pulmonary edema Status: Acute Comment Review of Relevant I have reviewed the following items samaria (where applicable) has been applied. Labs Laboratory Tests Test 05/21/18 18:00 05/22/18 09:20 Potassium Level 3.6 mmol/L (3.5-5.1) 4.0 mmol/L (3.5-5.1) Sodium Level 138 mmol/L (136-145) Chloride Level 103 mmol/L (98-107) Carbon Dioxide Level 24 mmol/L (21-32) Anion Gap 11 (6-14) Blood Urea Nitrogen 20 mg/dL (8-26) Creatinine 1.2 mg/dL (0.7-1.3) Estimated GFR (Cockcroft-Gault) 77.2 Glucose Level 107 mg/dL (70-99) Calcium Level 8.8 mg/dL (8.5-10.1) Medications Current Medications Potassium Chloride (Klor-Con) 20 meq 1X ONCE PO Last administered on at 11:25; Start 9/16/18 at 11:00; Stop 05/21/18 at 11:01; Status DC Potassium Chloride (Klor-Con) 40 meq 1X ONCE PO Last administered on at 11:25; Start 05/21/18 at 10:15; Stop 05/21/18 at 10:16; Status DC Potassium Chloride (Klor-Con) 40 meq 1X ONCE PO ; Start 05/21/18 at 18:00; Stop 05/21/18 at 18:01; Status UNV Sodium Chloride 1,000 ml @ 75 mls/hr [id number] IV ; Start 05/22/18 at 08:00 Vitals/I & O Vital Sign - Last 24 Hours 05/21/18 05/21/18 05/21/18 05/21/18 11:26 11:26 11:27 11:27 Temp 97.4 97.4 Pulse 68 68 68 77 Resp 21 B/P (MAP) 193/112 193/112 193/112 174/90 (118) Pulse Ox 99 O2 Delivery Room Air 05/21/18 05/21/18 05/21/18 05/21/18 12:02 14:38 14:48 14:49 Temp 98.0 98.0 Pulse 66 66 66 Resp 21 B/P (MAP) 205/115 (145) 205/115 205/115 Pulse Ox 98 O2 Delivery Room Air Room Air 05/21/18 05/21/18 05/21/18 05/21/18 16:22 19:05 19:40 20:00 Temp 98.2 98.2 Pulse 72 Resp 20 B/P (MAP) 149/74 (99) Pulse Ox 99 97 O2 Delivery Room Air Room Air Room Air Room Air 05/21/18 05/21/18 05/21/18 05/22/18 20:31 20:31 23:05 03:40 Temp 97.9 97.4 97.9 97.4 Pulse 72 72 72 67 Resp 18 18 B/P (MAP) 149/74 149/74 150/90 (110) 184/108 (133) Pulse Ox 97 97 O2 Delivery Room Air Room Air 05/22/18 05/22/18 05/22/18 05/22/18 03:56 05:05 07:31 07:37 Pulse 79 69 72 Resp 18 B/P (MAP) 184/108 165/91 (115) 194/113 Pulse Ox 100 O2 Delivery Room Air Room Air 05/22/18 05/22/18 05/22/18 05/22/18 07:38 07:38 07:39 07:40 Pulse 72 72 72 72 B/P (MAP) 194/113 194/113 194/113 194/113 05/22/18 05/22/18 07:54 07:57 Temp 98.2 98.2 Pulse 66 Resp 18 B/P (MAP) 194/113 (140) Pulse Ox 98 O2 Delivery Room Air Room Air Intake and Output 05/21/18 05/21/18 05/22/18 15:00 23:00 07:00 Intake Total 600 ml Balance 600 ml NEETU GONZALEZ MD May 22, 2018 10:06
[2018-05-22] MEDS: ACETAMINOPHEN 500 MG TABLET PO PRN ×3 (10:47→22:51)
[2018-05-22] MEDS ORDERED: IODIXANOL 320 MG/ML 100 ML VIAL. ONE ×2 (12:42→14:32)
[2018-05-22] MEDS ORDERED: LIDOCAINE 2%/EPI 1:100,000 20 ML VIAL. ONE (12:42)
[2018-05-22] MEDS ORDERED: LIDOCAINE 1% PF 30 ML VIAL. ONE (12:44)
--- NOTE | 2018-05-22 12:47 | PDOC ---
PULMONARY PROGRESS NOTES Subjective sob better, no cough, no cp, bp not controlled Vitals Vital Signs Date Time Temp Pulse Resp B/P (MAP) Pulse Ox O2 Delivery O2 Flow Rate FiO2 05/22/18 11:43 97 Room Air 05/22/18 11:38 97.8 70 18 178/108 (131) 97.8 ROS: No Nausea, No Chest Pain General: Alert, Oriented X4 HEENT: Other (nc at perrl shallow oropharynx. nose clear ) Lungs: Clear Cardiovascular: S2 Abdomen: Soft, Non-tender Neuro Exam: Alert Extremities: No Edema Skin: Warm Labs Laboratory Tests Test 05/21/18 04:00 05/21/18 18:00 05/22/18 09:20 Sodium Level 138 mmol/L (136-145) 138 mmol/L (136-145) Potassium Level 3.1 mmol/L (3.5-5.1) 3.6 mmol/L (3.5-5.1) 4.0 mmol/L (3.5-5.1) Chloride Level 104 mmol/L (98-107) 103 mmol/L (98-107) Carbon Dioxide Level 28 mmol/L (21-32) 24 mmol/L (21-32) Anion Gap 6 (6-14) 11 (6-14) Blood Urea Nitrogen 18 mg/dL (8-26) 20 mg/dL (8-26) Creatinine 1.4 mg/dL (0.7-1.3) 1.2 mg/dL (0.7-1.3) Estimated GFR (Cockcroft-Gault) 64.6 77.2 Glucose Level 104 mg/dL (70-99) 107 mg/dL (70-99) Calcium Level 8.3 mg/dL (8.5-10.1) 8.8 mg/dL (8.5-10.1) Laboratory Tests Test 05/21/18 18:00 05/22/18 09:20 Potassium Level 3.6 mmol/L (3.5-5.1) 4.0 mmol/L (3.5-5.1) Sodium Level 138 mmol/L (136-145) Chloride Level 103 mmol/L (98-107) Carbon Dioxide Level 24 mmol/L (21-32) Anion Gap 11 (6-14) Blood Urea Nitrogen 20 mg/dL (8-26) Creatinine 1.2 mg/dL (0.7-1.3) Estimated GFR (Cockcroft-Gault) 77.2 Glucose Level 107 mg/dL (70-99) Calcium Level 8.8 mg/dL (8.5-10.1) Medications Active Scripts Medications Dose Route/Sig Max Daily Dose Days Date Category Clonidine Hcl 0.3 Mg Tablet 0.3 Mg PO TID 05/18/18 Reported Losartan-Hctz 100-12.5 Mg Tab (Losartan/Hydrochlorothiazide) 1 Each Tablet 1 Each PO DAILY 05/18/18 Reported Metoprolol Succinate ( Xl ) (Metoprolol Succinate) 25 Mg Tab.er.24h 25 Mg PO DAILY 05/18/18 Reported Comments echo The left ventricular systolic function is normal. The Ejection Fraction is 60-65%. There is normal LV segmental wall motion. Trace mitral regurgitation. Trace tricuspid regurgitation. The PA pressure was estimated at 24 mmHg. There is no evidence of significant pericardial effusion. Impression . IMPRESSION: 1. Acute respiratory failure secondary to acute diastolic heart failure. 2. Abnormal x-ray compatible with vascular congestion. 3. ? pneumonia. 4. Echocardiogram revealing ejection fraction of 60-65%, PA pressure of 24. 5. Hypertensive urgency. 6. Non-ST segment elevation secondary to hypertensive urgency. 7. ? denny Plan . PLAN: 1. Continue diuresis per Cardiology. keep I<O, monitor cr, k 2. Hypertensive urgency. 3. doxycycline for total of 7 days 4. has snoring, i do recommend psg as out pt. 5. bp control per cardiology 6. BD 7. CATH TODAY pipe w rn, pt JOB RANGEL MD May 22, 2018 12:47
--- NOTE | 2018-05-22 13:00 | PDOC2 ---
CONSULT Date of Consult Date of Consult DATE: 05/22/18 TIME: 12:50 Reason for Consult Reason for Consult: HIGH BP AND JENA Referring Physician Referring Physician: LISA Identification/Chief Complaint Chief Complaint SOB Source Source: Chart review, Patient History of Present Illness Reason for Visit: THIS IS A 53 YR OLD WITH SOB AND ADMITTED WITH CHF. NOTED TO HAVE SEVERELY ELEVATED BP. CR OF 1.7 BUT NOW DOWN TO 1.2. NOTED TO HAVE NSTEMI AND SCHEDULED FOR HEART CATH. HE HAS A LOW K OF 3.1 BUT NOW CORRECTED. NO CKD HX REPORTED. SUSPECT NON COMPLIANCE. HE HAS BEEN DIURESED. NO HX OF ANY KIDNEY OR BLADDER SURGERIES HEMATURIA DYSURIA OR FREQUENCY NOTED. NO OTHER HX Past Medical History Cardiovascular: HTN Pulmonary: Asthma CENTRAL NERVOUS SYSTEM: Other (none) GI: No pertinent hx Heme/Onc: No pertinent hx Hepatobiliary: No pertinent hx Psych: No pertinent hx Musculoskeletal: No pain Rheumatologic: No pertinent hx Infectious disease: No pertinent hx ENT: No pertinent hx Renal/: No pertinent hx Endocrine: No pertinent hx Dermatology: No pertinent hx Past Surgical History Past Surgical History: No pertinent history Family History Family History: Heart Disease, Hypertension Social History No ALCOHOL: none Drugs: None Lives: with Family Current Problem List Problem List Problems Medical Problems: (1) Acute pulmonary edema Status: Acute Current Medications Current Medications Current Medications Nitroglycerin/ Dextrose 250 ml @ As Directed STK-MED ONCE IV ; Start 05/18/18 at 21:57; Stop 05/18/18 at 21:58; Status DC Nitroglycerin/ Dextrose 250 ml @ 0 mls/hr 1X ONCE IV Last administered on 05/18at 21:59; Start 05/18/18 at 22:30; Stop 05/18/18 at 22:31; Status DC Ondansetron HCl (Zofran) 4 mg 1X ONCE IV Last administered on 05/19/18at 00:30 ; Start 05/18/18 at 23:45; Stop 05/18/18 at 23:46; Status DC Aspirin (Children'S Aspirin) 324 mg 1X ONCE PO Last administered on 05/19/18at 00:30; Start 05/19/18 at 00:00; Stop 05/19/18 at 00:01; Status DC Potassium Chloride (KCl Oral Soln) 40 meq 1X ONCE PO Last administered on 05/19at 00:31; Start 05/19/18 at 00:00; Stop 05/19/18 at 00:01; Status DC Furosemide (Lasix) 40 mg 1X ONCE IVP Last administered on 05/19/18at 00:30; Start 05/19/18 at 00:00; Stop 05/19/18 at 00:01; Status DC Clonidine HCl (Catapres) 0.3 mg 1X ONCE PO Last administered on 05/19/18at 03: 21; Start 05/19/18 at 03:30; Stop 05/19/18 at 03:31; Status DC Clonidine HCl (Catapres) 0.3 mg TID PO Last administered on 05/22/18at 07:38; Start 05/19/18 at 09:30 Metoprolol Succinate (Toprol Xl) 25 mg DAILY PO Last administered on 05/19/18at 09:28; Start 05/19/18 at 09:30; Stop 05/20/18 at 09:09; Status DC Non-Formulary Medication (Losartan/ Hydrochlorothiazide (Losartan-Hctz 100-12.5 Mg Tab)) 1 each DAILY PO ; Start 05/19/18 at 09:00; Status UNV Losartan Potassium (Cozaar) 100 mg DAILY PO Last administered on 05/22/18at 07: 38; Start 05/19/18 at 09:30 Hydrochlorothiazide (Microzide) 12.5 mg DAILY PO Last administered on at 07:38; Start 05/19/18 at 09:30 Acetaminophen (Tylenol) 1,000 mg PRN Q6HRS PRN PO HEADACHE Last administered on 05/22/18at 10:47; Start 05/19/18 at 09:00 Albuterol/ Ipratropium (Duoneb) 3 ml 1X ONCE NEB ; Start 05/19/18 at 10:30; Stop 05/19/18 at 10:31; Status DC Albuterol/ Ipratropium (Duoneb) 3 ml RTQID NEB Last administered on 05/22/18at 11:42; Start 05/19/18 at 12:00 Aspirin (Zadby Aspirin) 325 mg 1X ONCE PO Last administered on 05/19/18at 13:32 ; Start 05/19/18 at 10:30; Stop 05/19/18 at 10:31; Status DC Aspirin (Brad Aspirin) 325 mg DAILYWBKFT PO Last administered on 05/22/18at 07: 36; Start 05/20/18 at 08:00 Atorvastatin Calcium (Lipitor) 10 mg QHS PO Last administered on 05/21/18at 20: 31; Start 05/19/18 at 21:00 Doxycycline Hyclate (Vibra-Tab) 100 mg BID PO Last administered on 05/22/18at 07 :37; Start 05/19/18 at 13:30 Lactobacillus Rhamnosus (Culturelle) 1 cap BID PO Last administered on at 20:32; Start 05/19/18 at 21:00 Labetalol HCl (Normodyne Iv Push) 10 mg PRN Q2HR PRN IVP HYPERTENSION, SEE COMMENTS Last administered on 05/22/18at 10:41; Start 05/19/18 at 17:30 Amlodipine Besylate (Norvasc) 10 mg 1X ONCE PO Last administered on 05/20/18at 08:31; Start 05/20/18 at 08:30; Stop 05/20/18 at 08:31; Status DC Metoprolol Succinate (Toprol Xl) 50 mg DAILY PO Last administered on 05/22/18at 07:40; Start 05/20/18 at 09:30 Potassium Chloride (Klor-Con) 40 meq 1X ONCE PO Last administered on at 10:33; Start 05/20/18 at 09:15; Stop 05/20/18 at 09:16; Status DC Potassium Chloride (Klor-Con) 20 meq 1X ONCE PO ; Start 05/20/18 at 11:15; Stop 05/20/18 at 14:06; Status DC Hydralazine HCl (Apresoline) 50 mg TID PO Last administered on 05/22/18at 07:37 ; Start 05/20/18 at 14:00 Amlodipine Besylate (Norvasc) 5 mg 1X ONCE PO ; Start 05/20/18 at 09:45; Stop 05/20/18 at 09:46; Status Cancel Amlodipine Besylate (Norvasc) 5 mg DAILY PO ; Start 05/20/18 at 11:00; Stop at 11:00; Status DC Amlodipine Besylate (Norvasc) 5 mg DAILY PO ; Start 05/21/18 at 09:00; Stop at 09:40; Status DC Potassium Chloride (Klor-Con) 20 meq DAILYWBKFT PO Last administered on at 11:25; Start 05/21/18 at 08:00 Regadenoson (Lexiscan) 0.4 mg 1X ONCE IV Last administered on 05/21/18at 09:00 ; Start 05/21/18 at 09:00; Stop 05/21/18 at 09:01; Status DC Amlodipine Besylate (Norvasc) 10 mg DAILY PO Last administered on 05/22/18at 07: 39; Start 05/21/18 at 09:45 Potassium Chloride (Klor-Con) 20 meq 1X ONCE PO Last administered on at 11:25; Start 05/21/18 at 11:00; Stop 05/21/18 at 11:01; Status DC Potassium Chloride (Klor-Con) 40 meq 1X ONCE PO Last administered on at 11:25; Start 05/21/18 at 10:15; Stop 05/21/18 at 10:16; Status DC Sodium Chloride 1,000 ml @ 75 mls/hr [id number] IV ; Start 05/22/18 at 08:00 Potassium Chloride (Klor-Con) 40 meq 1X ONCE PO ; Start 05/21/18 at 18:00; Stop 05/21/18 at 18:01; Status UNV Iodixanol (Visipaque 320) 100 ml STK-MED ONCE .ROUTE ; Start 05/22/18 at 12:42; Stop 05/22/18 at 12:43; Status DC Lidocaine/ Epinephrine (LIDOCAINE 2%-EPI 1:100,000 multi-dose) 20 ml STK-MED ONCE .ROUTE ; Start 05/22/18 at 12:42; Stop 05/22/18 at 12:43; Status DC Lidocaine HCl (Xylocaine 1% Pf 30ml Vial) 30 ml STK-MED ONCE .ROUTE ; Start at 12:44; Stop 05/22/18 at 12:45; Status DC Heparin Sodium/ Sodium Chloride 500 ml @ As Directed STK-MED ONCE .ROUTE ; Start 05/22/18 at 12:47; Stop 05/22/18 at 12:48; Status DC Active Scripts Active Reported Clonidine Hcl 0.3 Mg Tablet 0.3 Mg PO TID Losartan-Hctz 100-12.5 Mg Tab (Losartan/Hydrochlorothiazide) 1 Each Tablet 1 Each PO DAILY Metoprolol Succinate ( Xl ) (Metoprolol Succinate) 25 Mg Tab.er.24h 25 Mg PO DAILY Allergies Allergies: Coded Allergies: lisinopril (Verified Adverse Reaction, Intermediate, 05/20/18) coughing ROS Review of System FULL ROS NEG EXCEPT BELOW General: YES: Fatigue, Malaise Eyes: Yes Decreased vision HEENT: YES: Heacaches ALLERGY AND IMMUNOLOGY: YES: Seasonal Allergies Respiratory: YES: Cough, Shortness of breath Cardiovascular: yes Orthopnea Gastrointestinal: Yes Constipation Genitourinary: YES Other (NOCTURIA) Musculoskeletal: Yes Muscular Weakness Neurological: Yes Dizziness Skin: Yes Dry Skin Physical Exam General: Alert, Oriented X3, Cooperative HEENT: Atraumatic, PERRLA Lungs: Clear to auscultation Heart: Regular rate, Normal S1, Normal S2 Abdomen: Normal bowel sounds, Soft Extremities: No clubbing Skin: No breakdown Neuro: Normal speech, Cranial nerves 3-12 NL Psych/Mental Status: Mental status NL, Mood NL MUSCULOSKELETAL: No deformity, No swelling Vitals VITALS Vital Signs Date Time Temp Pulse Resp B/P (MAP) Pulse Ox O2 Delivery O2 Flow Rate FiO2 05/22/18 11:43 97 Room Air 05/22/18 11:38 97.8 70 18 178/108 (131) 97.8 Labs Labs Laboratory Tests Test 05/21/18 04:00 05/21/18 18:00 05/22/18 09:20 Sodium Level 138 mmol/L (136-145) 138 mmol/L (136-145) Potassium Level 3.1 mmol/L (3.5-5.1) 3.6 mmol/L (3.5-5.1) 4.0 mmol/L (3.5-5.1) Chloride Level 104 mmol/L (98-107) 103 mmol/L (98-107) Carbon Dioxide Level 28 mmol/L (21-32) 24 mmol/L (21-32) Anion Gap 6 (6-14) 11 (6-14) Blood Urea Nitrogen 18 mg/dL (8-26) 20 mg/dL (8-26) Creatinine 1.4 mg/dL (0.7-1.3) 1.2 mg/dL (0.7-1.3) Estimated GFR (Cockcroft-Gault) 64.6 77.2 Glucose Level 104 mg/dL (70-99) 107 mg/dL (70-99) Calcium Level 8.3 mg/dL (8.5-10.1) 8.8 mg/dL (8.5-10.1) Laboratory Tests Test 05/21/18 18:00 05/22/18 09:20 Potassium Level 3.6 mmol/L (3.5-5.1) 4.0 mmol/L (3.5-5.1) Sodium Level 138 mmol/L (136-145) Chloride Level 103 mmol/L (98-107) Carbon Dioxide Level 24 mmol/L (21-32) Anion Gap 11 (6-14) Blood Urea Nitrogen 20 mg/dL (8-26) Creatinine 1.2 mg/dL (0.7-1.3) Estimated GFR (Cockcroft-Gault) 77.2 Glucose Level 107 mg/dL (70-99) Calcium Level 8.8 mg/dL (8.5-10.1) Assessment/Plan Assessment/Plan IMP MALIGNANT HTN HYPOKALEMIA ON ADMIT NSTEMI JENA-IMPROVED CHF-ACUTE DIASTOLIC COMPENSATED PLAN REPLACE K NEEDED CONT NS HEART CATH CONT CURRENT MEDS CHANGE HCTZ TO AMILORIDE WILL FOLLOW UPDATED FAMILY ASIM HOPKINS MD May 22, 2018 13:00
[2018-05-22] MEDS ORDERED: MIDAZOLAM HCL/PF 2 MG/2 ML VIAL. ONE ×2 (13:23→13:54)
[2018-05-22] MEDS ORDERED: fentaNYL PF VIAL 100 MCG/2 ML VIAL ONE (13:23)
[2018-05-22] MEDS ORDERED: NITROGLYCERIN OINT 1 GM PACKET. ONE (13:34)
--- NOTE | 2018-05-22 13:38 | PDOC ---
MODERATE SEDATION ASSESSMENT RISKS/ALTERNATIVES Risks/Alternatives Risks and alternatives of this type of sedation and procedure discussed with: RISK/ALTERNATIVES: Patient H & P ON CHART H & P H & P on chart and reviewed for co-morbid conditions and appropriate labs. H&P ON CHART: Yes STATUS PREG STATUS ASSESSED: N/A MEDS/ALLERGIES REVIEWED Meds/Allergies Reviewed Medications and Allergies including time and route of recently administered narcotics and sedatives. MEDS/ALLERGIES REVIEWED: Yes ASA RATING ASA RATING: II AIRWAY ASSESSMENT Airway Assessment Airway patency, oral function limitations, presence of caps, crowns, dentures, partials, and ability to extend neck assessed. AIRWAY ASSESSMENT: Yes MALLAMPATI SCORE MALLAMPATI SCORE: II PRE-SEDATION ASSESSMENT PRE-SEDATION ASSESSMENT: Yes TUCKER FRAGOSO MD May 22, 2018 13:38
[2018-05-22] MEDS ORDERED: HEPARIN for IV BOLUS 10,000 UNIT/10 ML VIAL. ONE (13:39)
[2018-05-22] MEDS ORDERED: VERAPAMIL 5 MG/2 ML VIAL. ONE (13:39)
[2018-05-22] MEDS ORDERED: NITROGLYCERIN 200 MCG/2 ML SYRINGE FOR CATH/VASC LAB. ONE (13:40)
[2018-05-22] MEDS ORDERED: CONTRAST GIVEN. MC PRN (14:00)
[2018-05-22] MEDS ORDERED: LIDOCAINE 1% PF 30 ML VIAL. INJ ONE (14:00)
[2018-05-22] MEDS ORDERED: VERAPAMIL 5 MG/2 ML VIAL. IART ONE (14:00)
[2018-05-22] MEDS ORDERED: HEPARIN for IV BOLUS 10,000 UNIT/10 ML VIAL. IART ONE (14:00)
[2018-05-22] MEDS ORDERED: NITROGLYCERIN 200 MCG/2 ML SYRINGE FOR CATH/VASC LAB. IART ONE (14:00)
[2018-05-22] MEDS ORDERED: MIDAZOLAM HCL/PF 2 MG/2 ML VIAL. IV ONE (14:00)
[2018-05-22] MEDS ORDERED: fentaNYL PF VIAL 100 MCG/2 ML VIAL IV ONE (14:00)
[2018-05-22] MEDS ORDERED: NITROGLYCERIN OINT 1 GM PACKET. TP ONE (14:00)
[2018-05-22] MEDS ORDERED: IODIXANOL 320 MG/ML 100 ML VIAL. IART ONE (14:00)
--- NOTE | 2018-05-22 14:57 | PDOC4 ---
PROCEDURE Procedure Brief post cath note. Cath from the right radial approach. Minimal CAD with no lesions greater than 20%. Would continue present medications and will start Imdur 60 mg q day now. If BP better this evening would consider discharge and we will follow up in the office later this week. Discussed with the patient and his family. Full report to follow. TUCKER FRAGOSO MD May 22, 2018 14:57
[2018-05-22] MEDS ORDERED: NITROGLYCERIN SUBLINGUAL 0.4 MG BOTTLE OF 25. SL PRN (15:00)
[2018-05-22] MEDS ORDERED: 0.9 % SODIUM CHLORIDE 10 ML DISP.SYRIN. IV PRN (15:00)
[2018-05-22] MEDS: ONDANSETRON PF 4 MG/2 ML VIAL. IV PRN ×2 (15:34→20:13)
[2018-05-22] MEDS: POTASSIUM CHLORIDE 20 MEQ TABLET.ER. PO SCH (16:47)
[2018-05-22] MEDS: LACTOBACILLUS RHAMNOSUS GG 1 CAPSULE. PO SCH ×2 (16:48→21:35)
[2018-05-22] MEDS: ISOSORBIDE MONONITRATE ER 30 MG TAB.ER.24H PO SCH (16:48)
--- NOTE | 2018-05-22 17:10 | CARD ---
MR#: [id number] Date of Study: 05/22/2018 Ordering Physician: TUCKER WEAVER, Referring Physician: NEETU GONZALEZ Tech: RT Antwan (R) APPROVED REPORT Procedures Left heart catheterization Selective coronary angiogram Aortic root injection The patient is a 53-year-old male who was admitted with accelerated hypertension and a mildly elevate d troponin level. Nuclear stress testing suggested an inferior wall area of reversible ischemia. Hear t catheterization was recommended for definitive diagnosis of possible coronary artery disease. Risks and benefits were discussed with the patient. He agreed to proceed. After informed consent was obtained the patient was brought to the heart catheterization lab. The are a of the right radial artery was prepared in the usual manner with Betadine, sterile draping and loca l anesthetic after an acceptable Hayder's test. A quick catheter device was used to enter the right ra dial artery, a wire placed and a 6 English sheath placed over wire. With the assistance of the J-wire, a 6 English JL3.5 diagnostic catheter was advanced to the ascending aorta. This was not able to engag e the left system as well as an additional attempt with a JL4 catheter. Continuing with [id number] exchanges a 6 English JR4 catheter was then used to engage the right coronary artery and sequential i njections in various views were obtained. This catheter also entered the left ventricle and pressures were obtained. A Otto catheter was then advanced to the ascending aorta and used to engage the left system. Sequential injections in various views were obtained. A pigtail catheter was advanced to the ascending aorta. A 30 LAUREN aortic root injection was performed. The catheter was removed from the pa tient. The sheath was removed and sealed with a TR band. The patient was moved to the holding area in stable condition. Findings. Hemodynamics. LV pressure of 150/6, 18 Aortic root pressure of 146/96 Coronaries Left main. The left main was a moderately large vessel. It had no lesions. Left anterior descending. The LAD was a moderately large vessel with normal distribution. It had a mi d 10% lesion. Left circumflex. The left circumflex is a moderate nondominant vessel. It had a mid 15% lesion. Right coronary artery. The right coronary was a large dominant vessel. Had a proximal 15-20% lesion a nd a distal 20% lesion. Aortic root. The aortic root was mildly enlarged with no evidence of dissection or significant aortic insufficienc y. <Conclusion> Mild coronary artery disease with no lesions greater than 25%. LV EDP of 18 mmHg. Mildly enlarged aortic root. Signed by : Tucker Weaver MD Electronically Approved : 05/22/2018 17:09:31
[2018-05-22] MEDS: ATORVASTATIN CALCIUM 10 MG TABLET. PO SCH (21:35)
[2018-05-23 03:00] VITALS: BP 137/79
[2018-05-23 05:12] LABS: CALCIUM 8.5 mg/dL (8.5-10.1); CREATININE 1.8 mg/dL (0.7-1.3); GFR 48.4; POTASSIUM 3.9 mmol/L (3.5-5.1)
[2018-05-23] MEDS: IPRATRPIUM/ALBUTEROL 0.5/2.5MG 3 ML NEBU. NEB SCH ×4 (06:56→20:00)
[2018-05-23 07:00] VITALS: BP 151/92
[2018-05-23] MEDS: ISOSORBIDE MONONITRATE ER 30 MG TAB.ER.24H PO SCH (08:28)
[2018-05-23] MEDS: DOXYCYCLINE HYCLATE 100 MG TABLET PO SCH ×2 (08:28→20:30)
[2018-05-23] MEDS: METOPROLOL SUCC 24HR ER 50 MG TAB.ER.24H. PO SCH (08:29)
[2018-05-23] MEDS: LACTOBACILLUS RHAMNOSUS GG 1 CAPSULE. PO SCH ×2 (08:29→20:30)
[2018-05-23] MEDS: POTASSIUM CHLORIDE 20 MEQ TABLET.ER. PO SCH (08:30)
[2018-05-23] MEDS: amLODIPine BESYLATE 10 MG TABLET PO SCH (08:30)
[2018-05-23] MEDS: ASPIRIN 325 MG TABLET PO SCH (08:31)
[2018-05-23] MEDS: cloNIDine HCL 0.3 MG TABLET PO SCH ×3 (08:31→20:30)
[2018-05-23] MEDS ORDERED: SPIRONOLACTONE 25 MG TABLET PO SCH (09:00)
--- NOTE | 2018-05-23 09:11 | RAD ---
MR#: [id number] Account#: Date of Study: 05/21/2018 Ordering Physician: Referring Physician: LISA ALLEN Tech: RT Eh Soni) (N) APPROVED REPORT Test Type: Pharmacological Stress Nurse/Tech: Savita Storey R.N. Test Indications: htn Cardiac History: htn,obese Medications: Zocor Medical History: See Electronic Medical Record Resting Heart Rate: 70 bpm Resting Blood Pressure: 153/89mmHg Pretest Chest Pain: No chest pain Nurse/Tech Notes S1S2, lungs CTA Consent: The procedure was explained to the patient in lay terms. Informed consent was witnessed. John eout was entered into [facility]. History and Stress Test performed by RT Eh Soni) (N) Pharm. Details Pharmacologic stress testing was performed using 0.4mg per 5ml of regadenoson given intravenously ove r 7-10 seconds. Stress Symptoms SOB, increased H/A, N/V POST EXERCISE Reason for Termination: Infusion complete Max HR: 96 bpm Max Blood Pressure: 183/104mmHg Blood Pressure response to exercise: Normal blood pressure response during stress. Heart Rate response to exercise: wnl Chest Pain: No. Arrhythmia: No. few noted pvc's ST Change: No. INTERPRETATION Stress EKG Conclusion: The resting EKG shows a normal sinus rhythm with nonspecific ST-T wave changes . The stress EKG shows no significant changes from baseline. No EKG evidence of stressed induced ischemia. Imaging Protocol IMAGE PROTOCOL: Rest Tc-99m/stress Tc-99m 2 days Rest: Stress: Viability: Radiopharm.Tc99m TciogdihzDy38h Sestamibi [id number] 40mCi Duration 15min. 15min. Img Date 05/20/2018 05/21/2018 Inj-Img [id number]. 60min. Rest Admin Site:IV - Right AntecubitalAdministrator:RT Nae (Belinda)(N) Stress Admin Site: IV - Right AntecubitalAdministrator: RT Eh Soni)(N) STRESS DATA End Diast. Vol.156.0mlAv. Heart Rate73.0bpm End Syst. Vol.79.0mlCO Index BSA5.7L/min Myocardial Mmti477.0gEject. Klhwxqit42.0% Stress Rates Pk. Fill Rate2.24EDV/secLVtime Pk. Fill 246.14msec Pk. Empty Rate2.61ESV/secLVtime Pk. Jojlv015.88msec 1/3 Pk. Fill0.87EDV/sec Stress Scores Regional WT2.00Summed WT13.00 Regional WM3.00Summed WM20.00 LV Perfusion The stress scans show an inferior wall defect. The rest scans showed no significant defects. Nuclear imaging is suggestive of reversible ischemia in the inferior wall. Wall Motion Left ventricular systolic function is mildly decreased with ejection fraction of 49% and mild global hypokinesis. LV Perf. Quant 17 Seg. SSS18.00 17 Seg. SRS9.00 17 Seg. SDS9.00 Stress Defect Extent (% LAD)0.00Rest Defect Extent (% LAD)0.00Rev. Defect Extent (% LAD)0.00 Stress Defect Extent (% LCX) 93.80Rest Defect Extent (% LCX)46.30Rev. Defect Extent (% LCX)17.50 Stress Defect Extent (% RCA)61.10Rest Defect Extent (% RCA)0.00Rev. Defect Extent (% RCA)61.10 Stress Defect Extent (% ANALILIA)36.10Rest Defect Extent (% ANALILIA)9.80Rev. Defect Extent (% ANALILIA)17.60 Conclusion 1. Abnormal baseline EKG but no EKG evidence of stressed induced ischemia. 2. Nuclear imaging shows reversible ischemia in the inferior wall. 3. Minimally decreased ejection fraction at 49% with mild global hypokinesis. 4. Moderate risk Lexiscan nuclear stress test. Signed by : Timothy Weaver MD Electronically Approved : 05/21/2018 13:04:29
[2018-05-23] MEDS ORDERED: ISOSORBIDE MONONITRATE ER 30 MG TAB.ER.24H PO ONE (09:15)
--- NOTE | 2018-05-23 09:25 | PDOC ---
CARDIO Progress Notes Date and Time Date of Service 05/23/2018 Time of Evaluation 0900 Subjective Subjective: No Chest Pain, No shortness of breath, No Palpitations Vitals Vitals Vital Signs Date Time Temp Pulse Resp B/P (MAP) Pulse Ox O2 Delivery O2 Flow Rate FiO2 05/23/18 08:31 72 151/92 05/23/18 08:00 Room Air 05/23/18 07:00 98.5 20 97 98.5 05/22/18 14:43 2.0 Weight Weight [ ] Input and Output Intake and Output Intake and Output 05/23/18 07:00 Intake Total 630 ml Balance 630 ml Intake Oral 630 ml # Voids 5 Laboratory Labs Laboratory Tests Test 05/22/18 09:20 05/23/18 03:45 Sodium Level 138 mmol/L (136-145) 136 mmol/L (136-145) Potassium Level 4.0 mmol/L (3.5-5.1) 3.9 mmol/L (3.5-5.1) Chloride Level 103 mmol/L (98-107) 102 mmol/L (98-107) Carbon Dioxide Level 24 mmol/L (21-32) 25 mmol/L (21-32) Anion Gap 11 (6-14) 9 (6-14) Blood Urea Nitrogen 20 mg/dL (8-26) 27 mg/dL (8-26) Creatinine 1.2 mg/dL (0.7-1.3) 1.8 mg/dL (0.7-1.3) Estimated GFR (Cockcroft-Gault) 77.2 48.4 Glucose Level 107 mg/dL (70-99) 116 mg/dL (70-99) Calcium Level 8.8 mg/dL (8.5-10.1) 8.5 mg/dL (8.5-10.1) Magnesium Level 2.0 mg/dL (1.8-2.4) Physical Exam HEENT: Neck Supple W Full Motion Chest: Symmetric LUNGS: Clear to Auscultation Heart: S1S2, RRR (SR) Abdomen: Soft N/T Extremities: No Calf Tenderness Neurology: alert, oriented, follow commands Other Exams right wrist arteriotomy site intact, neurovascular status to right wrist intact. Assessment Assessment 1. Malignant HTN: improving 2. NSTEMI: type 2 demand mediated. Due to CHF and uncontrolled HTN. EF and WM nml. 3. Mild nonobstructive CAD: per LHC 4. Acute diastolic CHF/pulmonary edema: resolved 5. JENA: increased Cr. 1.8 from 1.2. suspect LAVONNE element. hx of CKD? 6. HLP; close to goal Recommendations 1. Stop aldactone and losartan for now. Start IVF 2. Discussed lifetyle modification with pt, wt loss, Na restriction. May need MALIK w/u as outpt 3. Start on imdur and increase hydralazine. Continue with clonidine and may change toprol to labetolol if BP remains labile. 4. Check UA. Continue ASA change to 81 mg. Continue with statin. MARIA VICTORIA ZAPATA APRN May 23, 2018 09:25
[2018-05-23] MEDS ORDERED: IV NORMAL SALINE 1000ML BAG 1,000 ML IV ONE (09:30)
--- NOTE | 2018-05-23 10:18 | PDOC ---
PROGRESS NOTES Subjective Subjective no complaints want to go home Objective Objective Vital Signs Date Time Temp Pulse Resp B/P (MAP) Pulse Ox O2 Delivery O2 Flow Rate FiO2 05/23/18 09:52 72 153/79 05/23/18 08:58 Room Air 05/23/18 07:00 98.5 20 97 98.5 05/22/18 14:43 2.0 Intake and Output 05/23/18 07:00 Intake Total 630 ml Balance 630 ml Intake Oral 630 ml # Voids 5 Physical Exam Abdomen: Normal bowel sounds, Soft Heart: Regular rate, Normal S1, Normal S2 Extremities: No clubbing General: Alert, Oriented X3, Cooperative HEENT: Atraumatic, PERRLA Lungs: Clear to auscultation MUSCULOSKELETAL: No deformity, No swelling Neuro: Normal speech, Cranial nerves 3-12 NL Psych/Mental Status: Mental status NL, Mood NL Skin: No breakdown Diagnosis Problem List Problems Medical Problems: (1) Acute pulmonary edema Status: Acute Assessment Assessment Problems Medical Problems: (1) Acute pulmonary edema Status: Acute FINAL IMPRESSION:ac renal insufficiency Abnormal stress test for non stemi 1. Acute congestive heart failure/pulmonary edema. 2. Hypertensive emergency.200/110 3. Chronic renal insufficiency. 4. Questionable history of asthma. PLAN: ac renal failure cr 1.8 from 1.2 hydrate today. possible d/c in am if kidney improves. cardiac cath 05/22, no major blockages stress test abnormal.renal consult for refractory htn add amlodipine+hydralazine for bp control pot 4.0 replace pot. cr 1.2 trending down. sono kidneys ok renal doppler no stenosis cxr improving ? home today Echo good lvf Plan Plan of Care Problems Medical Problems: (1) Acute pulmonary edema Status: Acute Comment Review of Relevant I have reviewed the following items samaria (where applicable) has been applied. Labs Laboratory Tests Test 05/23/18 03:45 Sodium Level 136 mmol/L (136-145) Potassium Level 3.9 mmol/L (3.5-5.1) Chloride Level 102 mmol/L (98-107) Carbon Dioxide Level 25 mmol/L (21-32) Anion Gap 9 (6-14) Blood Urea Nitrogen 27 mg/dL (8-26) Creatinine 1.8 mg/dL (0.7-1.3) Estimated GFR (Cockcroft-Gault) 48.4 Glucose Level 116 mg/dL (70-99) Calcium Level 8.5 mg/dL (8.5-10.1) Magnesium Level 2.0 mg/dL (1.8-2.4) Medications Current Medications Aspirin (Ecotrin) 81 mg DAILYWBKFT PO ; Start 05/24/18 at 08:00 Fentanyl Citrate (Fentanyl 2ml Vial) 100 mcg 1X ONCE IV Last administered on at 14:38; Start 05/22/18 at 14:00; Stop 05/22/18 at 14:01; Status DC Fentanyl Citrate (Fentanyl 2ml Vial) 100 mcg STK-MED ONCE .ROUTE ; Start at 13:23; Stop 05/22/18 at 13:24; Status DC Heparin Sodium (Porcine) (Heparin Sodium) 2,500 unit 1X ONCE IART Last administered on 05/22/18at 14:37; Start 05/22/18 at 14:00; Stop 05/22/18 at 14:01 ; Status DC Heparin Sodium (Porcine) (Heparin Sodium) 10,000 unit STK-MED ONCE .ROUTE ; Start 05/22/18 at 13:39; Stop 05/22/18 at 13:40; Status DC Heparin Sodium/ Sodium Chloride 500 ml @ As Directed STK-MED ONCE .ROUTE ; Start 05/22/18 at 12:47; Stop 05/22/18 at 12:48; Status DC Heparin Sodium/ Sodium Chloride (HEPARIN for ARTERIAL LINE FLUSH) 1,000 unit 1X ONCE IART Last administered on 05/22/18at 14:36; Start 05/22/18 at 14:00; Stop 05/22/18 at 14:01; Status DC Hydralazine HCl (Apresoline) 75 mg TID PO ; Start 05/23/18 at 14:00 Info (CONTRAST GIVEN -- Rx MONITORING) 1 each PRN DAILY PRN MC SEE COMMENTS; Start 05/22/18 at 14:00; Stop 05/24/18 at 13:59 Iodixanol (Visipaque 320) 100 ml 1X ONCE IART Last administered on 05/22/18at 14:34; Start 05/22/18 at 14:00; Stop 05/22/18 at 14:01; Status DC Iodixanol (Visipaque 320) 100 ml STK-MED ONCE .ROUTE ; Start 05/22/18 at 12:42; Stop 05/22/18 at 12:43; Status DC Iodixanol (Visipaque 320) 100 ml STK-MED ONCE .ROUTE ; Start 05/22/18 at 14:32; Stop 05/22/18 at 14:33; Status DC Isosorbide Mononitrate (Imdur) 30 mg 1X ONCE PO Last administered on at 09:52; Start 05/23/18 at 09:15; Stop 05/23/18 at 09:19; Status DC Isosorbide Mononitrate (Imdur) 60 mg DAILY PO Last administered on 05/23/18at 08 :28; Start 05/22/18 at 15:30; Stop 05/23/18 at 09:17; Status DC Isosorbide Mononitrate (Imdur) 90 mg DAILY PO ; Start 05/24/18 at 09:00 Lidocaine HCl (Xylocaine 1% Pf 30ml Vial) 30 ml 1X ONCE INJ Last administered on 05/22/18at 14:41; Start 05/22/18 at 14:00; Stop 05/22/18 at 14:01; Status DC Lidocaine HCl (Xylocaine 1% Pf 30ml Vial) 30 ml STK-MED ONCE .ROUTE ; Start at 12:44; Stop 05/22/18 at 12:45; Status DC Lidocaine/ Epinephrine (LIDOCAINE 2%-EPI 1:100,000 multi-dose) 20 ml STK-MED ONCE .ROUTE ; Start 05/22/18 at 12:42; Stop 05/22/18 at 12:43; Status DC Midazolam HCl (Versed) 2 mg 1X ONCE IV Last administered on 05/22/18at 14:33; Start 05/22/18 at 14:00; Stop 05/22/18 at 14:01; Status DC Midazolam HCl (Versed) 2 mg STK-MED ONCE .ROUTE ; Start 05/22/18 at 13:23; Stop 05/22/18 at 13:24; Status DC Midazolam HCl (Versed) 2 mg STK-MED ONCE .ROUTE ; Start 05/22/18 at 13:54; Stop 05/22/18 at 13:55; Status DC Nitroglycerin (Nitro-Bid Oint) 1 inch STK-MED ONCE .ROUTE ; Start 05/22/18 at 13 :34; Stop 05/22/18 at 13:35; Status DC Nitroglycerin (Nitro-Bid Oint) 2 inch 1X ONCE TP Last administered on at 14:00; Start 05/22/18 at 14:00; Stop 05/22/18 at 14:01; Status DC Nitroglycerin (Nitroglycerin) 200 mcg 1X ONCE IART Last administered on at 14:36; Start 05/22/18 at 14:00; Stop 05/22/18 at 14:01; Status DC Nitroglycerin (Nitroglycerin) 200 mcg STK-MED ONCE .ROUTE ; Start 05/22/18 at 13 :40; Stop 05/22/18 at 13:41; Status DC Nitroglycerin (Nitrostat) 0.4 mg PRN Q5MIN PRN SL CHEST PAIN; Start 05/22/18 at 15:00 Ondansetron HCl (Zofran) 4 mg PRN Q6HRS PRN IV NAUSEA/VOMITING Last administered on 05/22/18at 20:13; Start 05/22/18 at 15:30 Sodium Chloride 1,000 ml @ 125 mls/hr 1X ONCE IV Last administered on at 09:30; Start 05/23/18 at 09:30; Stop 05/23/18 at 17:29 Sodium Chloride (Normal Saline Flush) 3 ml QSHIFT PRN IV AFTER MEDS AND BLOOD DRAWS; Start 05/22/18 at 15:00 Spironolactone (Aldactone) 25 mg DAILY PO ; Start 05/23/18 at 09:00; Stop at 09:00; Status DC Verapamil HCl (Verapamil) 2.5 mg 1X ONCE IART Last administered on 05/22/18at 14:36; Start 05/22/18 at 14:00; Stop 05/22/18 at 14:01; Status DC Verapamil HCl (Verapamil) 5 mg STK-MED ONCE .ROUTE ; Start 05/22/18 at 13:39; Stop 05/22/18 at 13:40; Status DC Vitals/I & O Vital Sign - Last 24 Hours 05/22/18 05/22/18 05/22/18 05/22/18 10:30 10:41 11:38 11:43 Temp 97.8 97.8 Pulse 68 70 Resp 18 B/P (MAP) 178/108 178/108 (131) Pulse Ox 96 97 O2 Delivery Room Air Room Air Room Air 05/22/18 05/22/18 05/22/18 05/22/18 14:00 14:36 14:38 14:43 Pulse 70 69 Resp 20 19 B/P (MAP) 181/110 Pulse Ox 98 O2 Delivery Nasal Cannula O2 Flow Rate 2.0 05/22/18 05/22/18 05/22/18 05/22/18 15:00 15:10 15:15 15:30 Pulse 69 66 72 Resp 19 B/P (MAP) 160/98 (118) 161/95 (117) 156/94 (114) Pulse Ox 98 05/22/18 05/22/18 05/22/18 05/22/18 15:34 15:45 16:12 16:15 Temp 97.8 97.8 Pulse 68 84 62 Resp 18 B/P (MAP) 160/98 (118) 181/109 (133) 181/110 (133) Pulse Ox 96 O2 Delivery Room Air Room Air 05/22/18 05/22/18 05/22/18 05/22/18 16:45 16:47 16:48 16:48 Pulse 66 68 68 68 B/P (MAP) 174/93 (120) 179/108 179/108 179/108 05/22/18 05/22/18 05/22/18 05/22/18 17:56 19:30 20:00 21:35 Temp 97.7 97.7 Pulse 64 69 69 Resp 18 B/P (MAP) 161/94 (116) 153/87 (109) 153/87 Pulse Ox 98 O2 Delivery Room Air Room Air 05/22/18 05/22/18 05/23/18 05/23/18 21:36 22:55 03:00 06:56 Temp 98.2 97.7 98.2 97.7 Pulse 69 77 71 Resp 20 18 B/P (MAP) 153/87 149/87 (107) 137/79 (98) Pulse Ox 99 98 100 O2 Delivery Room Air Room Air Room Air 05/23/18 05/23/18 05/23/18 05/23/18 07:00 08:00 08:28 08:29 Temp 98.5 98.5 Pulse 72 72 72 Resp 20 B/P (MAP) 151/92 (111) 151/92 151/92 Pulse Ox 97 O2 Delivery Room Air Room Air 05/23/18 05/23/18 05/23/18 05/23/18 08:30 08:30 08:31 08:58 Pulse 72 72 72 B/P (MAP) 151/92 151/92 151/92 O2 Delivery Room Air 05/23/18 09:52 Pulse 72 B/P (MAP) 153/79 Intake and Output 05/22/18 05/22/18 05/23/18 15:00 23:00 07:00 Intake Total 150 ml 480 ml Balance 150 ml 480 ml NEETU GONZALEZ MD May 23, 2018 10:18
--- NOTE | 2018-05-23 10:25 | PDOC ---
Renal-Progress Notes Subjective Notes Notes NO NEW COMPLAINTS History of Present Illness Hx of present illness CATH NOTED Vitals Vitals Vital Signs Date Time Temp Pulse Resp B/P (MAP) Pulse Ox O2 Delivery O2 Flow Rate FiO2 05/23/18 09:52 72 153/79 05/23/18 08:58 Room Air 05/23/18 07:00 98.5 20 97 98.5 05/22/18 14:43 2.0 Weight Weight [ ] I.O. Intake and Output Intake and Output 05/23/18 07:00 Intake Total 630 ml Balance 630 ml Intake Oral 630 ml # Voids 5 Labs Labs Laboratory Tests Test 05/23/18 03:45 Sodium Level 136 mmol/L (136-145) Potassium Level 3.9 mmol/L (3.5-5.1) Chloride Level 102 mmol/L (98-107) Carbon Dioxide Level 25 mmol/L (21-32) Anion Gap 9 (6-14) Blood Urea Nitrogen 27 mg/dL (8-26) Creatinine 1.8 mg/dL (0.7-1.3) Estimated GFR (Cockcroft-Gault) 48.4 Glucose Level 116 mg/dL (70-99) Calcium Level 8.5 mg/dL (8.5-10.1) Magnesium Level 2.0 mg/dL (1.8-2.4) Review of Systems Constitutional: yes: no symptom reported Ears/Nose/Throat: Yes: no symptom reported Eyes: Yes: no symptom reported Pulmonary: Yes no symptom reported Cardiovascular: Yes no symptom reported Gastrointestional: Yes: no symptom reported Genitourinary: Yes: no symptom reported Musculoskeletal: Yes: no symptom reported Skin: Yes no symptom reported Psychiatric/Neurological: Yes: no symptom reported Endocrine: Yes: no symptom reported Physical Exam General Appearance: no apparent distress Respiratory: bilateral CTA Heart: S1S2 Abdomen: soft, bowel sounds present Genitourinary: bladder flat Extremities: pulses present Neurology: alert, oriented, follow commands Musculoskeletal: No pain Assessment Assessment IMP MALIGNANT HTN HYPOKALEMIA JENA-CAN S/P CATH PLAN CONT IVF'S CONT ALDACTONE WILL FOLLOW ASIM HOPKINS MD May 23, 2018 10:25
[2018-05-23] MEDS: IV NORMAL SALINE 1000ML BAG 1,000 ML IV SCH ×2 (10:40→23:07)
[2018-05-23 11:00] VITALS: BP 148/80
[2018-05-23 11:34] LABS: BILIRUBIN,URINE NEGATIVE (NEG); CLARITY,URINE CLEAR; COLOR,URINE AMBER; NITRITE,URINE NEGATIVE (NEG); PH,URINE 5.5; PROTEIN,URINE NEGATIVE (NEG-TRACE); UROBILINOGEN,URINE 0.2 mg/dL (0.2 mg/dL)
[2018-05-23 12:25] LABS: BACTERIA,URINE FEW /HPF (0-FEW); RBC,URINE OCC /HPF (0-2); SQUAMOUS EPITHELIAL CELL,UR FEW /LPF
[2018-05-23 14:42] VITALS: BP 147/83
--- NOTE | 2018-05-23 15:06 | PDOC ---
PULMONARY PROGRESS NOTES Subjective sob better, no cough, no cp, bp controlled Vitals Vital Signs Date Time Temp Pulse Resp B/P (MAP) Pulse Ox O2 Delivery O2 Flow Rate FiO2 05/23/18 14:43 74 147/83 05/23/18 14:42 98.2 20 98 Room Air 98.2 05/22/18 14:43 2.0 ROS: No Nausea, No Chest Pain General: Alert, Oriented X4 HEENT: Other (nc at perrl shallow oropharynx. nose clear ) Lungs: Clear Cardiovascular: S2 Abdomen: Soft, Non-tender Neuro Exam: Alert Extremities: No Edema Skin: Warm Labs Laboratory Tests Test 05/21/18 18:00 05/22/18 09:20 05/23/18 03:45 05/23/18 10:10 Potassium Level 3.6 mmol/L (3.5-5.1) 4.0 mmol/L (3.5-5.1) 3.9 mmol/L (3.5-5.1) Sodium Level 138 mmol/L (136-145) 136 mmol/L (136-145) Chloride Level 103 mmol/L (98-107) 102 mmol/L (98-107) Carbon Dioxide Level 24 mmol/L (21-32) 25 mmol/L (21-32) Anion Gap 11 (6-14) 9 (6-14) Blood Urea Nitrogen 20 mg/dL (8-26) 27 mg/dL (8-26) Creatinine 1.2 mg/dL (0.7-1.3) 1.8 mg/dL (0.7-1.3) Estimated GFR (Cockcroft-Gault) 77.2 48.4 Glucose Level 107 mg/dL (70-99) 116 mg/dL (70-99) Calcium Level 8.8 mg/dL (8.5-10.1) 8.5 mg/dL (8.5-10.1) Magnesium Level 2.0 mg/dL (1.8-2.4) Urine Collection Type Unknown Urine Color Krysta Urine Clarity Clear Urine pH 5.5 Urine Specific Darling >=1.030 Urine Protein Negative mg/dL (NEG-TRACE) Urine Glucose (UA) Negative mg/dL (NEG) Urine Ketones (Stick) Trace mg/dL (NEG) Urine Blood Negative (NEG) Urine Nitrite Negative (NEG) Urine Bilirubin Negative (NEG) Urine Urobilinogen Dipstick 0.2 mg/dL (0.2 mg/dL) Urine Leukocyte Esterase Negative (NEG) Urine RBC Occ /HPF (0-2) Urine WBC 1-4 /HPF (0-4) Urine Squamous Epithelial Cells Few /LPF Urine Bacteria Few /HPF (0-FEW) Urine Mucus Mod /LPF Laboratory Tests Test 05/23/18 03:45 05/23/18 10:10 Sodium Level 136 mmol/L (136-145) Potassium Level 3.9 mmol/L (3.5-5.1) Chloride Level 102 mmol/L (98-107) Carbon Dioxide Level 25 mmol/L (21-32) Anion Gap 9 (6-14) Blood Urea Nitrogen 27 mg/dL (8-26) Creatinine 1.8 mg/dL (0.7-1.3) Estimated GFR (Cockcroft-Gault) 48.4 Glucose Level 116 mg/dL (70-99) Calcium Level 8.5 mg/dL (8.5-10.1) Magnesium Level 2.0 mg/dL (1.8-2.4) Urine Collection Type Unknown Urine Color Krysta Urine Clarity Clear Urine pH 5.5 Urine Specific Darling >=1.030 Urine Protein Negative mg/dL (NEG-TRACE) Urine Glucose (UA) Negative mg/dL (NEG) Urine Ketones (Stick) Trace mg/dL (NEG) Urine Blood Negative (NEG) Urine Nitrite Negative (NEG) Urine Bilirubin Negative (NEG) Urine Urobilinogen Dipstick 0.2 mg/dL (0.2 mg/dL) Urine Leukocyte Esterase Negative (NEG) Urine RBC Occ /HPF (0-2) Urine WBC 1-4 /HPF (0-4) Urine Squamous Epithelial Cells Few /LPF Urine Bacteria Few /HPF (0-FEW) Urine Mucus Mod /LPF Medications Active Scripts Medications Dose Route/Sig Max Daily Dose Days Date Category Clonidine Hcl 0.3 Mg Tablet 0.3 Mg PO TID 05/18/18 Reported Losartan-Hctz 100-12.5 Mg Tab (Losartan/Hydrochlorothiazide) 1 Each Tablet 1 Each PO DAILY 05/18/18 Reported Metoprolol Succinate ( Xl ) (Metoprolol Succinate) 25 Mg Tab.er.24h 25 Mg PO DAILY 05/18/18 Reported Comments echo The left ventricular systolic function is normal. The Ejection Fraction is 60-65%. There is normal LV segmental wall motion. Trace mitral regurgitation. Trace tricuspid regurgitation. The PA pressure was estimated at 24 mmHg. There is no evidence of significant pericardial effusion. Impression . IMPRESSION: 1. Acute respiratory failure secondary to acute diastolic heart failure. resolved 2. Abnormal x-ray compatible with vascular congestion. 3. ? pneumonia. 4. Echocardiogram revealing ejection fraction of 60-65%, PA pressure of 24. 5. Hypertensive urgency. 6. Non-ST segment elevation secondary to hypertensive urgency. 7. ? denny Plan . PLAN: 1. Continue diuresis per Cardiology. keep I<O, monitor cr, k 2. Hypertensive urgency. 3. doxycycline for total of 7 days 4. has snoring, i do recommend psg as out pt. 5. bp control per cardiology 6. BD 7. CATH reviewed stable for dc home pulmonary barrera discussed w rn, pt JOB RANGEL MD May 23, 2018 15:06
[2018-05-23 19:30] VITALS: BP 152/76
[2018-05-23] MEDS: ATORVASTATIN CALCIUM 10 MG TABLET. PO SCH (20:33)
[2018-05-23 23:31] VITALS: BP 145/75
[2018-05-24 03:22] VITALS: BP 163/90
[2018-05-24 07:30] VITALS: BP 170/94
[2018-05-24] MEDS ORDERED: ASPIRIN ENTERIC COATED 81 MG TABLET.DR. PO SCH (08:00)
[2018-05-24 08:26] LABS: HEMATOCRIT 39.1 % (39.0-53.0); HEMOGLOBIN 12.6 g/dL (13.0-17.5); RED BLOOD COUNT 4.85 x10^6/uL (4.30-5.70); RED CELL DISTRIBUTION WIDTH 15.1 % (11.5-14.5); WHITE BLOOD COUNT 6.1 x10^3/uL (4.0-11.0)
[2018-05-24] MEDS: DOXYCYCLINE HYCLATE 100 MG TABLET PO SCH (08:31)
[2018-05-24] MEDS: LACTOBACILLUS RHAMNOSUS GG 1 CAPSULE. PO SCH (08:31)
[2018-05-24] MEDS: POTASSIUM CHLORIDE 20 MEQ TABLET.ER. PO SCH (08:31)
[2018-05-24] MEDS: amLODIPine BESYLATE 10 MG TABLET PO SCH (08:32)
[2018-05-24] MEDS: cloNIDine HCL 0.3 MG TABLET PO SCH (08:32)
[2018-05-24] MEDS: METOPROLOL SUCC 24HR ER 50 MG TAB.ER.24H. PO SCH (08:34)
[2018-05-24 08:51] LABS: CALCIUM 8.3 mg/dL (8.5-10.1); CREATININE 1.4 mg/dL (0.7-1.3); GFR 64.6; POTASSIUM 3.9 mmol/L (3.5-5.1)
[2018-05-24] MEDS ORDERED: ISOSORBIDE MONONITRATE ER 30 MG TAB.ER.24H PO SCH (09:00)
--- NOTE | 2018-05-24 09:57 | PDOC ---
PROGRESS NOTES Subjective Subjective anxious to go home Objective Objective Vital Signs Date Time Temp Pulse Resp B/P (MAP) Pulse Ox O2 Delivery O2 Flow Rate FiO2 05/24/18 08:34 70 05/24/18 07:30 98.2 18 170/94 (119) 96 Room Air 98.2 Intake and Output 05/24/18 07:00 Intake Total 1750 ml Balance 1750 ml Intake Oral 1750 ml # Voids 6 Physical Exam Abdomen: Normal bowel sounds, Soft Heart: Regular rate, Normal S1, Normal S2 Extremities: No clubbing General: Alert, Oriented X3, Cooperative HEENT: Atraumatic, PERRLA Lungs: Clear to auscultation MUSCULOSKELETAL: No deformity, No swelling Neuro: Normal speech, Cranial nerves 3-12 NL Psych/Mental Status: Mental status NL, Mood NL Skin: No breakdown Diagnosis Problem List Problems Medical Problems: (1) Acute pulmonary edema Status: Acute Assessment Assessment Problems Medical Problems: (1) Acute pulmonary edema Status: Acute FINAL IMPRESSION:ac renal insufficiency Abnormal stress test for non stemi 1. Acute congestive heart failure/pulmonary edema. 2. Hypertensive emergency.200/110 3. Chronic renal insufficiency. 4. Questionable history of asthma. PLAN: ac renal failure improved,cr 1.4 down from 1.8 with hydration d/c home today.. cardiac cath 05/22, no major blockages stress test abnormal.renal consult for refractory htn add amlodipine+hydralazine for bp control sono kidneys ok renal doppler no stenosis cxr improving Echo good lvf Plan Plan of Care Problems Medical Problems: (1) Acute pulmonary edema Status: Acute Comment Review of Relevant I have reviewed the following items samaria (where applicable) has been applied. Labs Laboratory Tests Test 05/23/18 10:10 05/24/18 07:16 05/24/18 07:26 Urine Collection Type Unknown Urine Color Krysta Urine Clarity Clear Urine pH 5.5 Urine Specific Meherrin >=1.030 Urine Protein Negative mg/dL (NEG-TRACE) Urine Glucose (UA) Negative mg/dL (NEG) Urine Ketones (Stick) Trace mg/dL (NEG) Urine Blood Negative (NEG) Urine Nitrite Negative (NEG) Urine Bilirubin Negative (NEG) Urine Urobilinogen Dipstick 0.2 mg/dL (0.2 mg/dL) Urine Leukocyte Esterase Negative (NEG) Urine RBC Occ /HPF (0-2) Urine WBC 1-4 /HPF (0-4) Urine Squamous Epithelial Cells Few /LPF Urine Bacteria Few /HPF (0-FEW) Urine Mucus Mod /LPF Sodium Level 139 mmol/L (136-145) Potassium Level 3.9 mmol/L (3.5-5.1) Chloride Level 106 mmol/L (98-107) Carbon Dioxide Level 24 mmol/L (21-32) Anion Gap 9 (6-14) Blood Urea Nitrogen 28 mg/dL (8-26) Creatinine 1.4 mg/dL (0.7-1.3) Estimated GFR (Cockcroft-Gault) 64.6 Glucose Level 99 mg/dL (70-99) Calcium Level 8.3 mg/dL (8.5-10.1) White Blood Count 6.1 x10^3/uL (4.0-11.0) Red Blood Count 4.85 x10^6/uL (4.30-5.70) Hemoglobin 12.6 g/dL (13.0-17.5) Hematocrit 39.1 % (39.0-53.0) Mean Corpuscular Volume 81 fL (79-100) Mean Corpuscular Hemoglobin 26 pg (25-35) Mean Corpuscular Hemoglobin Concent 32 g/dL (31-37) Red Cell Distribution Width 15.1 % (11.5-14.5) Platelet Count 196 x10^3/uL (140-400) Medications Current Medications Aspirin (Ecotrin) 81 mg DAILYWBKFT PO Last administered on 05/24/18at 08:32; Start 05/24/18 at 08:00 Hydralazine HCl (Apresoline) 75 mg TID PO Last administered on 05/24/18at 08:33 ; Start 05/23/18 at 14:00 Isosorbide Mononitrate (Imdur) 90 mg DAILY PO Last administered on 05/24/18at 08 :32; Start 05/24/18 at 09:00 Vitals/I & O Vital Sign - Last 24 Hours 05/23/18 05/23/18 05/23/18 05/23/18 11:00 14:42 14:42 14:43 Temp 98.6 98.2 98.6 98.2 Pulse 68 68 74 74 Resp 20 20 B/P (MAP) 148/80 (102) 147/83 147/83 (104) 147/83 Pulse Ox 98 98 O2 Delivery Room Air Room Air 05/23/18 05/23/18 05/23/18 05/23/18 19:30 20:00 20:30 20:30 Temp 98.2 98.2 Pulse 68 68 68 Resp 19 B/P (MAP) 152/76 (101) 152/76 152/76 Pulse Ox 98 O2 Delivery Room Air Room Air 05/23/18 05/24/18 05/24/18 05/24/18 23:31 03:22 07:30 08:32 Temp 97.9 98.2 98.2 97.9 98.2 98.2 Pulse 68 67 69 70 Resp 18 18 18 B/P (MAP) 145/75 (98) 163/90 (114) 170/94 (119) Pulse Ox 98 97 96 O2 Delivery Room Air Room Air Room Air 05/24/18 05/24/18 05/24/18 05/24/18 08:32 08:32 08:33 08:34 Pulse 70 70 70 70 Intake and Output 05/23/18 05/23/18 05/24/18 15:00 23:00 07:00 Intake Total 1450 ml 300 ml Balance 1450 ml 300 ml NEETU GONZALEZ MD May 24, 2018 09:57
[2018-05-24] MEDS ORDERED: SPIR25TA5 PO (10:01)
[2018-05-24] MEDS ORDERED: ISOS30TA4 PO (10:01)
--- NOTE | 2018-05-24 10:55 | PDOC ---
PULMONARY PROGRESS NOTES Subjective sob better, no cough, no cp, bp controlled Vitals Vital Signs Date Time Temp Pulse Resp B/P (MAP) Pulse Ox O2 Delivery O2 Flow Rate FiO2 05/24/18 08:34 70 05/24/18 08:00 Room Air 05/24/18 07:30 98.2 18 170/94 (119) 96 98.2 ROS: No Nausea, No Chest Pain General: Alert, Oriented X4 HEENT: Other (nc at perrl shallow oropharynx. nose clear ) Lungs: Clear Cardiovascular: S2 Abdomen: Soft, Non-tender Neuro Exam: Alert Extremities: No Edema Skin: Warm Labs Laboratory Tests Test 05/23/18 03:45 05/23/18 10:10 05/24/18 07:16 05/24/18 07:26 Sodium Level 136 mmol/L (136-145) 139 mmol/L (136-145) Potassium Level 3.9 mmol/L (3.5-5.1) 3.9 mmol/L (3.5-5.1) Chloride Level 102 mmol/L (98-107) 106 mmol/L (98-107) Carbon Dioxide Level 25 mmol/L (21-32) 24 mmol/L (21-32) Anion Gap 9 (6-14) 9 (6-14) Blood Urea Nitrogen 27 mg/dL (8-26) 28 mg/dL (8-26) Creatinine 1.8 mg/dL (0.7-1.3) 1.4 mg/dL (0.7-1.3) Estimated GFR (Cockcroft-Gault) 48.4 64.6 Glucose Level 116 mg/dL (70-99) 99 mg/dL (70-99) Calcium Level 8.5 mg/dL (8.5-10.1) 8.3 mg/dL (8.5-10.1) Magnesium Level 2.0 mg/dL (1.8-2.4) Urine Collection Type Unknown Urine Color Krysta Urine Clarity Clear Urine pH 5.5 Urine Specific Conrad >=1.030 Urine Protein Negative mg/dL (NEG-TRACE) Urine Glucose (UA) Negative mg/dL (NEG) Urine Ketones (Stick) Trace mg/dL (NEG) Urine Blood Negative (NEG) Urine Nitrite Negative (NEG) Urine Bilirubin Negative (NEG) Urine Urobilinogen Dipstick 0.2 mg/dL (0.2 mg/dL) Urine Leukocyte Esterase Negative (NEG) Urine RBC Occ /HPF (0-2) Urine WBC 1-4 /HPF (0-4) Urine Squamous Epithelial Cells Few /LPF Urine Bacteria Few /HPF (0-FEW) Urine Mucus Mod /LPF White Blood Count 6.1 x10^3/uL (4.0-11.0) Red Blood Count 4.85 x10^6/uL (4.30-5.70) Hemoglobin 12.6 g/dL (13.0-17.5) Hematocrit 39.1 % (39.0-53.0) Mean Corpuscular Volume 81 fL (79-100) Mean Corpuscular Hemoglobin 26 pg (25-35) Mean Corpuscular Hemoglobin Concent 32 g/dL (31-37) Red Cell Distribution Width 15.1 % (11.5-14.5) Platelet Count 196 x10^3/uL (140-400) Laboratory Tests Test 05/24/18 07:16 05/24/18 07:26 Sodium Level 139 mmol/L (136-145) Potassium Level 3.9 mmol/L (3.5-5.1) Chloride Level 106 mmol/L (98-107) Carbon Dioxide Level 24 mmol/L (21-32) Anion Gap 9 (6-14) Blood Urea Nitrogen 28 mg/dL (8-26) Creatinine 1.4 mg/dL (0.7-1.3) Estimated GFR (Cockcroft-Gault) 64.6 Glucose Level 99 mg/dL (70-99) Calcium Level 8.3 mg/dL (8.5-10.1) White Blood Count 6.1 x10^3/uL (4.0-11.0) Red Blood Count 4.85 x10^6/uL (4.30-5.70) Hemoglobin 12.6 g/dL (13.0-17.5) Hematocrit 39.1 % (39.0-53.0) Mean Corpuscular Volume 81 fL (79-100) Mean Corpuscular Hemoglobin 26 pg (25-35) Mean Corpuscular Hemoglobin Concent 32 g/dL (31-37) Red Cell Distribution Width 15.1 % (11.5-14.5) Platelet Count 196 x10^3/uL (140-400) Medications Active Scripts Medications Dose Route/Sig Max Daily Dose Days Date Category Clonidine Hcl 0.3 Mg Tablet 0.3 Mg PO TID 05/18/18 Reported Losartan-Hctz 100-12.5 Mg Tab (Losartan/Hydrochlorothiazide) 1 Each Tablet 1 Each PO DAILY 05/18/18 Reported Metoprolol Succinate ( Xl ) (Metoprolol Succinate) 25 Mg Tab.er.24h 25 Mg PO DAILY 05/18/18 Reported Comments echo The left ventricular systolic function is normal. The Ejection Fraction is 60-65%. There is normal LV segmental wall motion. Trace mitral regurgitation. Trace tricuspid regurgitation. The PA pressure was estimated at 24 mmHg. There is no evidence of significant pericardial effusion. Impression . IMPRESSION: 1. Acute respiratory failure secondary to acute diastolic heart failure. resolved 2. Abnormal x-ray compatible with vascular congestion. 3. ? pneumonia. 4. Echocardiogram revealing ejection fraction of 60-65%, PA pressure of 24. 5. Hypertensive urgency. 6. Non-ST segment elevation secondary to hypertensive urgency. 7. ? denny Plan . PLAN: 1. Continue diuresis per Cardiology. keep I<O, monitor cr, k 2. Hypertensive urgency. 3. doxycycline for total of 7 days 4. has snoring, i do recommend psg as out pt. 5. bp control per cardiology 6. BD 7. CATH reviewed stable for dc home pulmonary barrera discussed w rn, pt JOB RANGEL MD May 24, 2018 10:55
[2018-05-24 11:16] VITALS: BP 146/79
--- NOTE | 2018-05-24 11:17 | PDOC ---
Renal-Progress Notes Subjective Notes Notes WANTS TO GO HOME History of Present Illness Hx of present illness STABLE Vitals Vitals Vital Signs Date Time Temp Pulse Resp B/P (MAP) Pulse Ox O2 Delivery O2 Flow Rate FiO2 05/24/18 08:34 70 05/24/18 08:00 Room Air 05/24/18 07:30 98.2 18 170/94 (119) 96 98.2 Weight Weight [ ] I.O. Intake and Output Intake and Output 05/24/18 07:00 Intake Total 1750 ml Balance 1750 ml Intake Oral 1750 ml # Voids 6 Labs Labs Laboratory Tests Test 05/24/18 07:16 05/24/18 07:26 Sodium Level 139 mmol/L (136-145) Potassium Level 3.9 mmol/L (3.5-5.1) Chloride Level 106 mmol/L (98-107) Carbon Dioxide Level 24 mmol/L (21-32) Anion Gap 9 (6-14) Blood Urea Nitrogen 28 mg/dL (8-26) Creatinine 1.4 mg/dL (0.7-1.3) Estimated GFR (Cockcroft-Gault) 64.6 Glucose Level 99 mg/dL (70-99) Calcium Level 8.3 mg/dL (8.5-10.1) White Blood Count 6.1 x10^3/uL (4.0-11.0) Red Blood Count 4.85 x10^6/uL (4.30-5.70) Hemoglobin 12.6 g/dL (13.0-17.5) Hematocrit 39.1 % (39.0-53.0) Mean Corpuscular Volume 81 fL (79-100) Mean Corpuscular Hemoglobin 26 pg (25-35) Mean Corpuscular Hemoglobin Concent 32 g/dL (31-37) Red Cell Distribution Width 15.1 % (11.5-14.5) Platelet Count 196 x10^3/uL (140-400) Review of Systems Constitutional: yes: no symptom reported Ears/Nose/Throat: Yes: no symptom reported Eyes: Yes: no symptom reported Pulmonary: Yes no symptom reported Cardiovascular: Yes no symptom reported Gastrointestional: Yes: no symptom reported Genitourinary: Yes: no symptom reported Musculoskeletal: Yes: no symptom reported Skin: Yes no symptom reported Psychiatric/Neurological: Yes: no symptom reported Endocrine: Yes: no symptom reported Physical Exam General Appearance: no apparent distress Respiratory: bilateral CTA Heart: S1S2 Abdomen: soft, bowel sounds present Genitourinary: bladder flat Extremities: pulses present Neurology: alert, oriented, follow commands Musculoskeletal: No pain Assessment Assessment IMP MALIGNANT HTN HYPOKALEMIA [id number] WITH CR DOWN TO 1.4 S/P CATH PLAN OK TO D/C D/W ATTENDING WILL FOLLOW OP NEEDED ASIM HOPKINS MD May 24, 2018 11:17
--- NOTE | 2018-05-25 14:36 | PDOC ---
Provider Note Provider Note Discharge summary dictated. #[id number]. NEETU GONZALEZ MD May 25, 2018 14:36
--- NOTE | 2018-05-25 15:03 | DS ---
DATE OF DISCHARGE: 05/24/2018 REASON FOR ADMISSION TO THE HOSPITAL: Pulmonary edema and shortness of breath. CONSULTATIONS: 1. Dr. Jarquin, Cardiology. 2. Dr. Hester. 3. Dr. Lee, Renal. PROCEDURES DONE: 1. Echocardiogram. 2. Cardiac catheterization. 3. Stress test. HOSPITAL COURSE: The patient is a 53-year-old male with history of hypertension, who was working at his garage on the car cleaning with some spray, the tires and noticed to get short of breath and called ambulance. The patient was found to be in pulmonary edema, congestive heart failure, high blood pressure. The patient was given Lasix and he was also found to have a creatinine of 1.8. The patient seen by Cardiology, had echocardiogram, which shows 60% ejection fraction. The patient had a stress test, which shows positive for ischemia, inferior wall. The patient had a cardiac cath, which shows mild coronary artery disease. No lesions greater than 25%. After cardiac cath, creatinine went up to 1.8, was given IV fluids, hydration and it came down to 1.4. On the whole, the patient's condition improved. He was already getting 3 medications for blood pressure, another 3 new medications were added to control his blood pressure. Had seen by Renal, had ultrasound of the kidneys, was negative. Had a renal arterial Doppler, was negative. FINAL DIAGNOSES: 1. Acute pulmonary edema. 2. Hypertensive emergency. 3. Refractory hypertension, requiring multiple medications. 4. Chronic renal insufficiency, stage 3. 5. Possible underlying bronchitis. 6. Cardiac cath showed minimal CAD, no significant blockages. DISPOSITION: Home. DISCHARGE MEDICATIONS: See MRAD for discharge medications. DISCHARGE INSTRUCTIONS: The patient will be treated with doxycycline for 1 week while he is in the hospital for possible underlying bronchitis. Follow up with primary care physician, Dr. Meier in 1 week. Monitor the kidney function. At the time of discharge, his creatinine was 1.4. NEETU GONZALEZ MD DR: PACHECO/dc JOB#: [id number] / [id number] TRISH
== END 2018-05-24 11:30 | disposition home or self-care (01) | DRG 280 ==
LOC: ER 21:42 → 1 WEST ICU 05-19 00:25 → 2 NORTH 05-19 16:39
PROVIDERS: ADMIT Internal Medicine; ATTEND Internal Medicine
PROC: 5A09357 Assistance with Respiratory Ventilation, Less than 24 Consecutive Hours, Continuous Positive Airway Pressure (ICD-10-PCS; 2018-05-19)
PROC: 4A023N7 Measurement of Cardiac Sampling and Pressure, Left Heart, Percutaneous Approach (ICD-10-PCS; principal; 2018-05-22)
PROC: B2111ZZ Fluoroscopy of Multiple Coronary Arteries using Low Osmolar Contrast (ICD-10-PCS; 2018-05-22)
DX: I13.0 Hypertensive heart and chronic kidney disease with heart failure and stage 1 through stage 4 chronic kidney disease, or unspecified chronic kidney disease (principal); I21.A1 Myocardial infarction type 2; I50.33 Acute on chronic diastolic (congestive) heart failure; J96.01 Acute respiratory failure with hypoxia; I16.1 Hypertensive emergency; N17.9 Acute kidney failure, unspecified; E78.5 Hyperlipidemia, unspecified; E87.6 Hypokalemia; G47.33 Obstructive sleep apnea (adult) (pediatric); I25.10 Atherosclerotic heart disease of native coronary artery without angina pectoris; J45.909 Unspecified asthma, uncomplicated; N18.3 Chronic kidney disease, stage 3 (moderate); Z82.49 Family history of ischemic heart disease and other diseases of the circulatory system
CPT/HCPCS: 36415; 36600; 71045; 71046; 76770; 78452; 80048; 80053; 80061; 80307; 81001; 82805; 83735; 83880; 84132; 84443; 84484; 85025; 85027; 85610; 87641; 93005; 93017; 93306; 93458; 93567; 93975; 94640; 94660; 94760; 96365; 96374; 96375; 96376; 99152; 99153; A9500; C1769; C1892; G0480; J1644; J1940; J2250; J2405; J2785; J3010; J3490; J7030; J7620; 99291-25; G0479